=== PATIENT | female | born 1950 | race Caucasian/White ===

== ENCOUNTER 2022-06-17 14:10 | Inpatient (IN) | payer MEDICARE, SELFPAY ==
[2022-06-17 15:15] LABS: #Eosinphils 0.2 thou/uL (0.0-0.7); #Lymphocytes 0.9 thou/uL (1.20-3.40); %Basophils 0.2 % (0.0-1.0); %Eosinophils 1.8 % (0.0-10.0); %Lymphocytes 8.6 % (21.0-51.0); %Neutrophils 79.5 % (42.0-75.0); Hemoglobin 12.5 g/dL (12.0-16.0); Mean Corpuscular HGB CONC 30.9 g/dL (32.0-36.0); Mean Corpuscular Hemoglobin 30.2 pg (27.0-31.0); Mean Corpuscular Volume 97.7 fL (78.0-98.0); Mean Platelet Volume 10.4 fL (7.4-10.4); Platelet Count 163 thou/uL (130-400); RBC Distribution Width 14.1 % (11.5-14.5); Red Blood Cell (RBC) Count 4.15 mill/uL (4.20-5.40); White Blood Cell (WBC) Count 10.1 thou/uL (4.8-10.8)
[2022-06-17 15:42] LABS: ALT (SGPT) 31 U/L (8-55); AST (SGOT) 40 U/L (5-34); Albumin 3.6 g/dL (3.4-4.8); Alkaline Phosphatase 130 U/L (40-110); Anion Gap 14 mmol/L (10-20); BUN (Urea Nitrogen) 15 mg/dL (9.8-20.1); Bilirubin, Total 1.8 mg/dL (0.2-1.2); Calc. Creatinine Clearance 0 mL/min (70-130); Calcium 9.3 mg/dL (7.8-10.44); Carbon Dioxide 28 mmol/L (23-31); Chloride 103 mmol/L (98-107); Estimated GFR 73; Globulin 3.2 g/dL (2.4-3.5); Glucose 170 mg/dL (83-110); Potassium 3.6 mmol/L (3.5-5.1); Protein, Total 6.8 g/dL (5.8-8.1); Sodium 141 mmol/L (136-145)
[2022-06-17 17:57] LABS: Bacteria/HPF 4+ HPF (None Seen); Bilirubin Negative (Negative); Blood, Urine 3+ (Negative); Clarity Extra Turbid (Clear); Glucose, Urine (Dipstick) Normal (Negative); Ketone, Urine 40 mg/dL (Negative); Leukocyte 500 Leu/uL (Negative); Nitrite Negative (Negative); Protein, Urine (Dipstick) 50 mg/dL (Neg-Trace); Specific Gravity, Urine 1.018 (1.002-1.036); WBC/HPF Greater than 50 HPF (0-3); pH, Urine 5.5 (5.0-9.0)
[2022-06-17 17:59] LABS: RBC/HPF 21-50 HPF (0-3)
[2022-06-17 18:46] LABS: Lactic Acid 2.1 mmol/L (0.5-2.2)
[2022-06-17] MEDS ORDERED: Dextrose 50% Abboject 50 ML SYRINGE SLOW IVP PRN (20:04)
[2022-06-17] MEDS ORDERED: Dextrose 5% in Water 1,000 ML IV PRN (20:04)
[2022-06-17] MEDS ORDERED: HumaLOG 300 UNITS/3 ML VIAL SC PRN ×2 (20:04)
[2022-06-17] MEDS ORDERED: Acetaminophen 325 MG TAB PO PRN (20:04)
[2022-06-17] MEDS ORDERED: cefTRIAXone\\ROCEPHIN 1 GM VIAL ONE (21:08)
[2022-06-17 22:08] VITALS: BMI 62.3
[2022-06-17] MEDS: cefTRIAXone\\ROCEPHIN 2 GM in Sodium Chloride 0.9% 100 ML IVPB SCH (22:19)
[2022-06-17] MEDS: Apixaban 5 MG TAB PO SCH (22:25)
[2022-06-17] MEDS: Atorvastatin Calcium 20 MG TAB PO SCH (22:25)
[2022-06-17 22:59] LABS: Bilirubin Negative (Negative); Blood, Urine 3+ (Negative); Clarity Turbid (Clear); Glucose, Urine (Dipstick) Normal (Negative); Ketone, Urine 40 mg/dL (Negative); Leukocyte 500 Leu/uL (Negative); Nitrite Negative (Negative); Protein, Urine (Dipstick) 30 mg/dL (Neg-Trace); Specific Gravity, Urine 1.017 (1.002-1.036)
[2022-06-17 23:01] LABS: Bacteria/HPF 1+ HPF (None Seen); Squamous Epithelial 0-3 HPF (0-3)
[2022-06-17 23:02] LABS: Amphetamine Not Detected (NotDetected); Barbiturates Screen Not Detected (NotDetected); Benzodiazepine Screen Not Detected (NotDetected); Cocaine Metabolite Screen Not Detected (NotDetected); Methadone Not Detected (NotDetected); Methamphetamine Not Detected (NotDetected); Opiate Screen Detected (NotDetected); Oxycodone Screen Not Detected (NotDetected); Phencyclidine (PCP) Not Detected (NotDetected); THC/Cannabinoid Screen Not Detected (NotDetected); Tricyclic Screen Not Detected (NotDetected)
[2022-06-18 06:43] LABS: #Eosinphils 0.4 thou/uL (0.0-0.7); #Monocytes 0.8 thou/uL (0.11-0.59); #Neutrophils 4.5 thou/uL (1.40-6.50); %Basophils 0.5 % (0.0-1.0); %Eosinophils 5.5 % (0.0-10.0); %Lymphocytes 14.7 % (21.0-51.0); %Monocytes 12.1 % (0.0-10.0); %Neutrophils 67.1 % (42.0-75.0); Hemoglobin 11.6 g/dL (12.0-16.0); Mean Corpuscular HGB CONC 31.5 g/dL (32.0-36.0); Mean Corpuscular Hemoglobin 31.2 pg (27.0-31.0); Mean Platelet Volume 10.2 fL (7.4-10.4); Platelet Count 152 thou/uL (130-400); White Blood Cell (WBC) Count 6.7 thou/uL (4.8-10.8)
[2022-06-18 06:52] LABS: Anion Gap 9 mmol/L (10-20); BUN (Urea Nitrogen) 14 mg/dL (9.8-20.1); Calc. Creatinine Clearance 182 mL/min (70-130); Calcium 8.6 mg/dL (7.8-10.44); Carbon Dioxide 29 mmol/L (23-31); Chloride 105 mmol/L (98-107); Estimated GFR 83; Glucose 118 mg/dL (83-110); Sodium 140 mmol/L (136-145)
[2022-06-18] MEDS: Hydrochlorothiazide 25 MG TAB PO SCH (08:26)
[2022-06-18] MEDS: Apixaban 5 MG TAB PO SCH ×2 (08:26→20:55)
[2022-06-18] MEDS: Potassium Chloride 20 MEQ TAB PO SCH ×3 (08:32→20:55)
[2022-06-18] MEDS: Lisinopril 2.5 MG TAB PO SCH (08:36)
[2022-06-18] MEDS ORDERED: FLU VACC QS2022-23(65YR UP)/PF 240 MCG/0.7 ML SYRINGE IM ONE (09:00)
[2022-06-18] MEDS: Nystatin Powder 15 GM BOT TOP SCH ×2 (13:19→21:00)
[2022-06-18] MEDS: cefTRIAXone\\ROCEPHIN 2 GM in Sodium Chloride 0.9% 100 ML IVPB SCH (20:55)
[2022-06-18] MEDS: Atorvastatin Calcium 20 MG TAB PO SCH (20:55)
[2022-06-18] MEDS: Aquaphor 3.5 oz (99 G) JAR TOP SCH (21:00)
[2022-06-19 05:54] LABS: #Eosinphils 0.4 thou/uL (0.0-0.7); #Lymphocytes 0.9 thou/uL (1.20-3.40); #Monocytes 0.8 thou/uL (0.11-0.59); #Neutrophils 4.5 thou/uL (1.40-6.50); %Basophils 0.3 % (0.0-1.0); %Eosinophils 6.1 % (0.0-10.0); %Monocytes 12.6 % (0.0-10.0); Hemoglobin 10.8 g/dL (12.0-16.0); Mean Corpuscular HGB CONC 31.3 g/dL (32.0-36.0); Mean Corpuscular Hemoglobin 30.9 pg (27.0-31.0); Mean Corpuscular Volume 98.7 fL (78.0-98.0); Mean Platelet Volume 10.1 fL (7.4-10.4); Platelet Count 147 thou/uL (130-400); Platelet Morphology Comment Appears Adequate; RBC Distribution Width 14.2 % (11.5-14.5); Red Blood Cell (RBC) Count 3.51 mill/uL (4.20-5.40); White Blood Cell (WBC) Count 6.7 thou/uL (4.8-10.8)
[2022-06-19 05:59] LABS: Anion Gap 9 mmol/L (10-20); BUN (Urea Nitrogen) 14 mg/dL (9.8-20.1); Calc. Creatinine Clearance 182 mL/min (70-130); Calcium 8.4 mg/dL (7.8-10.44); Carbon Dioxide 28 mmol/L (23-31); Chloride 106 mmol/L (98-107); Estimated GFR 83; Glucose 106 mg/dL (83-110); Potassium 3.3 mmol/L (3.5-5.1); Sodium 140 mmol/L (136-145)
[2022-06-19] MEDS ORDERED: Fluconazole 100 MG TAB PO SCH (07:15)
[2022-06-19] MEDS: Lisinopril 2.5 MG TAB PO SCH (11:00)
[2022-06-19] MEDS: Apixaban 5 MG TAB PO SCH ×2 (11:02→20:34)
[2022-06-19] MEDS: Potassium Chloride 20 MEQ TAB PO SCH ×2 (11:03→15:08)
[2022-06-19] MEDS: Nystatin Powder 15 GM BOT TOP SCH ×3 (11:04→21:00)
[2022-06-19] MEDS: Hydrochlorothiazide 25 MG TAB PO SCH (11:04)
[2022-06-19] MEDS: Aquaphor 3.5 oz (99 G) JAR TOP SCH ×2 (11:10→20:34)
[2022-06-19] MEDS: Atorvastatin Calcium 20 MG TAB PO SCH (20:34)
[2022-06-19] MEDS: cefTRIAXone\\ROCEPHIN 2 GM in Sodium Chloride 0.9% 100 ML IVPB SCH (20:35)
[2022-06-20 07:12] LABS: #Eosinphils 0.4 thou/uL (0.0-0.7); #Monocytes 0.6 thou/uL (0.11-0.59); #Neutrophils 3.5 thou/uL (1.40-6.50); %Basophils 0.5 % (0.0-1.0); %Eosinophils 7.4 % (0.0-10.0); %Lymphocytes 18.3 % (21.0-51.0); %Monocytes 11.6 % (0.0-10.0); %Neutrophils 62.4 % (42.0-75.0); Hemoglobin 11.2 g/dL (12.0-16.0); Mean Corpuscular HGB CONC 30.9 g/dL (32.0-36.0); Mean Corpuscular Hemoglobin 30.6 pg (27.0-31.0); Mean Corpuscular Volume 99.1 fL (78.0-98.0); Mean Platelet Volume 10.6 fL (7.4-10.4); Platelet Count 155 thou/uL (130-400); RBC Distribution Width 14.3 % (11.5-14.5); Red Blood Cell (RBC) Count 3.66 mill/uL (4.20-5.40); White Blood Cell (WBC) Count 5.6 thou/uL (4.8-10.8)
[2022-06-20 07:33] LABS: Anion Gap 10 mmol/L (10-20); BUN (Urea Nitrogen) 15 mg/dL (9.8-20.1); Calc. Creatinine Clearance 173 mL/min (70-130); Calcium 8.9 mg/dL (7.8-10.44); Carbon Dioxide 26 mmol/L (23-31); Chloride 108 mmol/L (98-107); Estimated GFR 78; Glucose 117 mg/dL (83-110); Sodium 140 mmol/L (136-145)
[2022-06-20] MEDS: Aquaphor 3.5 oz (99 G) JAR TOP SCH ×2 (10:12→21:03)
[2022-06-20] MEDS: Nystatin Powder 15 GM BOT TOP SCH ×3 (10:12→21:04)
[2022-06-20] MEDS: Lisinopril 2.5 MG TAB PO SCH (10:14)
[2022-06-20] MEDS: Fluconazole 100 MG TAB PO SCH (10:15)
[2022-06-20] MEDS: Apixaban 5 MG TAB PO SCH ×2 (10:15→21:02)
[2022-06-20] MEDS: Hydrochlorothiazide 25 MG TAB PO SCH (10:15)
[2022-06-20] MEDS: Atorvastatin Calcium 20 MG TAB PO SCH (21:02)
[2022-06-20] MEDS: cefTRIAXone\\ROCEPHIN 2 GM in Sodium Chloride 0.9% 100 ML IVPB SCH (21:03)
[2022-06-20] MEDS ORDERED: Melatonin 3 MG TAB PO PRN (22:43)
[2022-06-20] MEDS: Lorazepam 0.5 MG TAB PO PRN (23:45)
[2022-06-21 08:56] LABS: #Eosinphils 0.4 thou/uL (0.0-0.7); #Lymphocytes 1.2 thou/uL (1.20-3.40); #Monocytes 0.6 thou/uL (0.11-0.59); #Neutrophils 3.1 thou/uL (1.40-6.50); %Basophils 0.5 % (0.0-1.0); %Lymphocytes 21.8 % (21.0-51.0); %Neutrophils 58.7 % (42.0-75.0); Mean Corpuscular HGB CONC 30.5 g/dL (32.0-36.0); Mean Corpuscular Hemoglobin 30.1 pg (27.0-31.0); Mean Corpuscular Volume 98.8 fL (78.0-98.0); Mean Platelet Volume 10.3 fL (7.4-10.4); Platelet Count 156 thou/uL (130-400); RBC Distribution Width 14.3 % (11.5-14.5); Red Blood Cell (RBC) Count 3.66 mill/uL (4.20-5.40); White Blood Cell (WBC) Count 5.3 thou/uL (4.8-10.8)
[2022-06-21] MEDS: Lisinopril 2.5 MG TAB PO SCH (08:58)
[2022-06-21] MEDS: Fluconazole 100 MG TAB PO SCH (08:59)
[2022-06-21] MEDS: Apixaban 5 MG TAB PO SCH ×2 (08:59→22:00)
[2022-06-21] MEDS: Hydrochlorothiazide 25 MG TAB PO SCH (08:59)
[2022-06-21] MEDS: Nystatin Powder 15 GM BOT TOP SCH ×3 (09:03→22:00)
[2022-06-21] MEDS: Aquaphor 3.5 oz (99 G) JAR TOP SCH ×2 (09:03→22:00)
[2022-06-21 09:08] LABS: Anion Gap 10 mmol/L (10-20); BUN (Urea Nitrogen) 15 mg/dL (9.8-20.1); Calc. Creatinine Clearance 168 mL/min (70-130); Calcium 8.8 mg/dL (7.8-10.44); Carbon Dioxide 28 mmol/L (23-31); Chloride 106 mmol/L (98-107); Estimated GFR 76; Glucose 77 mg/dL (83-110); Potassium 3.8 mmol/L (3.5-5.1); Sodium 140 mmol/L (136-145)
[2022-06-21] MEDS: cefTRIAXone\\ROCEPHIN 2 GM in Sodium Chloride 0.9% 100 ML IVPB SCH (22:00)
[2022-06-21] MEDS: Atorvastatin Calcium 20 MG TAB PO SCH (22:00)
[2022-06-22 06:19] LABS: #Eosinphils 0.4 thou/uL (0.0-0.7); #Lymphocytes 1.3 thou/uL (1.20-3.40); #Monocytes 0.7 thou/uL (0.11-0.59); #Neutrophils 2.6 thou/uL (1.40-6.50); %Basophils 0.4 % (0.0-1.0); %Eosinophils 8.3 % (0.0-10.0); %Lymphocytes 25.1 % (21.0-51.0); %Monocytes 14.6 % (0.0-10.0); %Neutrophils 51.6 % (42.0-75.0); Hemoglobin 11.3 g/dL (12.0-16.0); Mean Corpuscular HGB CONC 31.7 g/dL (32.0-36.0); Mean Corpuscular Hemoglobin 31.2 pg (27.0-31.0); Mean Corpuscular Volume 98.6 fL (78.0-98.0); Mean Platelet Volume 9.9 fL (7.4-10.4); Platelet Count 148 thou/uL (130-400); RBC Distribution Width 14.2 % (11.5-14.5)
[2022-06-22 06:49] LABS: Anion Gap 11 mmol/L (10-20); BUN (Urea Nitrogen) 13 mg/dL (9.8-20.1); Calc. Creatinine Clearance 173 mL/min (70-130); Calcium 8.7 mg/dL (7.8-10.44); Carbon Dioxide 27 mmol/L (23-31); Chloride 104 mmol/L (98-107); Estimated GFR 78; Glucose 67 mg/dL (83-110); Potassium 3.7 mmol/L (3.5-5.1); Sodium 138 mmol/L (136-145)
[2022-06-22] MEDS: Hydrochlorothiazide 25 MG TAB PO SCH (09:18)
[2022-06-22] MEDS: Fluconazole 100 MG TAB PO SCH (09:20)
[2022-06-22] MEDS: Aquaphor 3.5 oz (99 G) JAR TOP SCH ×2 (09:20→21:58)
[2022-06-22] MEDS: Apixaban 5 MG TAB PO SCH ×2 (09:20→21:58)
[2022-06-22] MEDS: Lisinopril 2.5 MG TAB PO SCH (09:20)
[2022-06-22] MEDS: Nystatin Powder 15 GM BOT TOP SCH ×3 (09:21→21:58)
[2022-06-22] MEDS: Atorvastatin Calcium 20 MG TAB PO SCH (21:58)
[2022-06-22] MEDS: Cefdinir 300 MG CAP PO SCH (21:58)
[2022-06-23] MEDS: Lorazepam 0.5 MG TAB PO PRN (00:41)
[2022-06-23] MEDS: Cefdinir 300 MG CAP PO SCH ×2 (08:51→20:35)
[2022-06-23] MEDS: Hydrochlorothiazide 25 MG TAB PO SCH (08:52)
[2022-06-23] MEDS: Lisinopril 2.5 MG TAB PO SCH (08:52)
[2022-06-23] MEDS: Aquaphor 3.5 oz (99 G) JAR TOP SCH ×2 (08:53→20:39)
[2022-06-23] MEDS: Nystatin Powder 15 GM BOT TOP SCH ×3 (08:53→20:40)
[2022-06-23] MEDS: Apixaban 5 MG TAB PO SCH ×2 (08:53→20:35)
[2022-06-23] MEDS: Atorvastatin Calcium 20 MG TAB PO SCH (20:35)
[2022-06-24] MEDS: Lisinopril 2.5 MG TAB PO SCH (08:50)
[2022-06-24] MEDS: Apixaban 5 MG TAB PO SCH (08:50)
[2022-06-24] MEDS: Cefdinir 300 MG CAP PO SCH (08:50)
[2022-06-24] MEDS: Hydrochlorothiazide 25 MG TAB PO SCH (08:51)
[2022-06-24] MEDS: Nystatin Powder 15 GM BOT TOP SCH (08:51)
[2022-06-24] MEDS: Aquaphor 3.5 oz (99 G) JAR TOP SCH (08:51)
[2022-06-24 12:15] VITALS: BP 142/55; TEMP 97.4
== END 2022-06-24 12:37 | DRG 690 ==
LOC: SUATTDRO 14:10 → ERS 14:10 → T4-B 19:30 → OBSVTOIN 06-19 14:41
PROVIDERS: ADMIT Internal Medicine; ATTEND Internal Medicine
DX: N30.00 Acute cystitis without hematuria (principal); Z68.44 Body mass index [BMI] 60.0-69.9, adult; Z20.822 Contact with and (suspected) exposure to COVID-19; Z23 Encounter for immunization; I10 Essential (primary) hypertension; I48.91 Unspecified atrial fibrillation; E11.9 Type 2 diabetes mellitus without complications; E78.5 Hyperlipidemia, unspecified; E66.01 Morbid (severe) obesity due to excess calories; I48.0 Paroxysmal atrial fibrillation; H40.9 Unspecified glaucoma; Z88.2 Allergy status to sulfonamides; Z98.51 Tubal ligation status; Z90.710 Acquired absence of both cervix and uterus; Z90.722 Acquired absence of ovaries, bilateral
CPT/HCPCS: 36415; 36416; 71045; 80048; 80053; 80306; 81003; 81015; 83605; 84484; 85025; 87040; 87086; 90471; 90662; 93005; 96374; 96376; 97139; G0008; G0378; J0696; J3490; U0003; U0005

== ENCOUNTER 2022-07-18 13:43 | Inpatient (IN) | payer MEDICARE, OTHER ==
[2022-07-18] MEDS ORDERED: Piperacillin/Tazobactam 3.375 GM VIAL ONE (14:45)
[2022-07-18 14:52] LABS: #Eosinphils 0.2 thou/uL (0.0-0.7); #Lymphocytes 1.1 thou/uL (1.20-3.40); #Monocytes 0.7 thou/uL (0.11-0.59); #Neutrophils 5.9 thou/uL (1.40-6.50); %Basophils 0.4 % (0.0-1.0); %Eosinophils 2.1 % (0.0-10.0); %Lymphocytes 14.1 % (21.0-51.0); %Monocytes 9.3 % (0.0-10.0); %Neutrophils 74.2 % (42.0-75.0); Hemoglobin 12.8 g/dL (12.0-16.0); Mean Corpuscular HGB CONC 32.7 g/dL (32.0-36.0); Mean Corpuscular Hemoglobin 30.9 pg (27.0-31.0); Mean Corpuscular Volume 94.4 fl (78.0-98.0); Mean Platelet Volume 9.6 fL (7.4-10.4); Platelet Count 183 thou/uL (130-400); RBC Distribution Width 14.5 % (11.5-14.5); Red Blood Cell (RBC) Count 4.13 mill/uL (4.20-5.40)
[2022-07-18 15:12] LABS: Bacteria/HPF 1+ HPF (None Seen); Bilirubin Negative (Negative); Blood, Urine 3+ (Negative); Glucose, Urine (Dipstick) Normal (Negative); Ketone, Urine Negative (Negative); Leukocyte 250 Leu/uL (Negative); Nitrite Negative (Negative); Protein, Urine (Dipstick) 10 mg/dL (Neg-Trace); RBC/HPF Greater than 50 HPF (0-3); Specific Gravity, Urine 1.018 (1.002-1.036); Squamous Epithelial 0-3 HPF (0-3); Urobilinogen Normal mg/dL (Less than 2); WBC/HPF 21-50 HPF (0-3); pH, Urine 5.5 (5.0-9.0)
[2022-07-18 15:13] LABS: Clarity Cloudy (Clear)
[2022-07-18 15:15] LABS: ALT (SGPT) 26 U/L (8-55); AST (SGOT) 24 U/L (5-34); Albumin 3.5 g/dL (3.4-4.8); Alkaline Phosphatase 197 U/L (40-110); Anion Gap 14 mmol/L (10-20); BUN (Urea Nitrogen) 24 mg/dL (9.8-20.1); CK (CPK) 303 U/L (29-168); Calc. Creatinine Clearance 0 mL/min (70-130); Calcium 9.5 mg/dL (7.8-10.44); Carbon Dioxide 26 mmol/L (23-31); Chloride 103 mmol/L (98-107); Estimated GFR 65; Globulin 3.3 g/dL (2.4-3.5); Glucose 153 mg/dL (83-110); Potassium 3.8 mmol/L (3.5-5.1); Protein, Total 6.8 g/dL (5.8-8.1); Sodium 139 mmol/L (136-145)
[2022-07-18 15:36] LABS: SARS-CoV-2 NAA Rapid Test Not Detected (NotDetected)
[2022-07-18] MEDS ORDERED: Vancomycin 1 GM/200 ML (PREMIX) BAG ONE (16:12)
[2022-07-18] MEDS ORDERED: Boostrix 0.5 ML (Tdap) VIAL (>/=7 yrs of age) ONE (16:13)
[2022-07-18] MEDS ORDERED: Dextrose 5% in Water 1,000 ML IV PRN (16:37)
[2022-07-18] MEDS ORDERED: HumaLOG 300 UNITS/3 ML VIAL SC PRN (16:37)
[2022-07-18] MEDS ORDERED: Dextrose 50% Abboject 50 ML SYRINGE SLOW IVP PRN (16:37)
[2022-07-18] MEDS ORDERED: Acetaminophen 325 MG TAB PO PRN (16:38)
[2022-07-18 16:50] LABS: Hemoglobin A1c 6.8 % (4.0-6.0)
[2022-07-18] MEDS: Apixaban 5 MG TAB PO SCH (21:54)
[2022-07-18] MEDS: cefTRIAXone\\ROCEPHIN 1 GM in Sodium Chloride 0.9% 100 ML IVPB SCH (21:55)
[2022-07-18 22:28] VITALS: BMI 56.9
[2022-07-18] MEDS ORDERED: Vancomycin 1.5 GRAM/300 ML BAG 1.5 GM in Premix Bag 1 BAG IVPB SCH (23:00)
[2022-07-19 07:23] LABS: #Basophils 0.1 thou/uL (0.0-0.2); #Eosinphils 0.4 thou/uL (0.0-0.7); #Monocytes 0.6 thou/uL (0.11-0.59); %Basophils 0.9 % (0.0-1.0); %Eosinophils 6.2 % (0.0-10.0); %Lymphocytes 16.6 % (21.0-51.0); %Monocytes 9.7 % (0.0-10.0); %Neutrophils 66.6 % (42.0-75.0); Hemoglobin 11.9 g/dL (12.0-16.0); Mean Corpuscular Hemoglobin 29.8 pg (27.0-31.0); Mean Corpuscular Volume 96.3 fl (78.0-98.0); Mean Platelet Volume 9.9 fL (7.4-10.4); Platelet Count 174 thou/uL (130-400); RBC Distribution Width 14.7 % (11.5-14.5); Red Blood Cell (RBC) Count 3.97 mill/uL (4.20-5.40)
[2022-07-19 07:42] LABS: Anion Gap 12 mmol/L (10-20); BUN (Urea Nitrogen) 19 mg/dL (9.8-20.1); Calc. Creatinine Clearance 137 mL/min (70-130); Calcium 8.8 mg/dL (7.8-10.44); Carbon Dioxide 23 mmol/L (23-31); Chloride 107 mmol/L (98-107); Estimated GFR 66; Glucose 129 mg/dL (83-110); Sodium 138 mmol/L (136-145)
[2022-07-19] MEDS ORDERED: Hydrochlorothiazide 25 MG TAB PO SCH (09:00)
[2022-07-19] MEDS ORDERED: Lisinopril 2.5 MG TAB PO SCH (09:00)
[2022-07-19] MEDS: Apixaban 5 MG TAB PO SCH ×2 (09:19→21:10)
[2022-07-19] MEDS: Potassium Chloride 20 MEQ TAB PO SCH (09:19)
[2022-07-19] MEDS: Vancomycin 1 GM in Premix Bag 1 BAG IVPB SCH ×2 (13:53→23:42)
[2022-07-19] MEDS: Senokot S 8.6-50 MG TAB PO PRN ×2 (13:53→21:10)
[2022-07-19] MEDS: Furosemide 20 MG/2 ML VIAL SLOW IVP SCH (13:53)
[2022-07-19] MEDS: Carvedilol 3.125 MG TAB PO SCH (18:15)
[2022-07-19] MEDS: Atorvastatin Calcium 20 MG TAB PO SCH (21:10)
[2022-07-19] MEDS: Nystatin Powder 15 GM BOT TOP PRN (21:11)
[2022-07-19] MEDS: cefTRIAXone\\ROCEPHIN 1 GM in Sodium Chloride 0.9% 100 ML IVPB SCH (21:11)
[2022-07-20 05:42] LABS: Anion Gap 14 mmol/L (10-20); BUN (Urea Nitrogen) 16 mg/dL (9.8-20.1); Calc. Creatinine Clearance 150 mL/min (70-130); Calcium 8.7 mg/dL (7.8-10.44); Carbon Dioxide 20 mmol/L (23-31); Chloride 106 mmol/L (98-107); Estimated GFR 74; Glucose 172 mg/dL (83-110); Sodium 136 mmol/L (136-145)
[2022-07-20] MEDS: Furosemide 20 MG/2 ML VIAL SLOW IVP SCH ×2 (06:17→14:23)
[2022-07-20] MEDS: HumaLOG 300 UNITS/3 ML VIAL SC PRN (06:24)
[2022-07-20] MEDS: Apixaban 5 MG TAB PO SCH ×2 (08:48→20:33)
[2022-07-20] MEDS: Carvedilol 3.125 MG TAB PO SCH ×2 (08:48→17:30)
[2022-07-20] MEDS: Potassium Chloride 20 MEQ TAB PO SCH (08:48)
[2022-07-20 11:08] LABS: #Basophils 0.1 thou/uL (0.0-0.2); #Eosinphils 0.2 thou/uL (0.0-0.7); #Monocytes 0.7 thou/uL (0.11-0.59); #Neutrophils 6.9 thou/uL (1.40-6.50); %Basophils 0.6 % (0.0-1.0); %Eosinophils 1.7 % (0.0-10.0); %Lymphocytes 11.1 % (21.0-51.0); %Monocytes 7.8 % (0.0-10.0); %Neutrophils 78.7 % (42.0-75.0); Mean Corpuscular HGB CONC 31.1 g/dL (32.0-36.0); Mean Corpuscular Hemoglobin 30.3 pg (27.0-31.0); Mean Corpuscular Volume 97.3 fl (78.0-98.0); Mean Platelet Volume 9.9 fL (7.4-10.4); Platelet Count 168 thou/uL (130-400); RBC Distribution Width 14.9 % (11.5-14.5); Red Blood Cell (RBC) Count 4.28 mill/uL (4.20-5.40); White Blood Cell (WBC) Count 8.8 thou/uL (4.8-10.8)
[2022-07-20 11:25] LABS: Vancomycin, Trough 16.8 ug/mL
[2022-07-20] MEDS: Vancomycin 1 GM in Premix Bag 1 BAG IVPB SCH (13:11)
[2022-07-20] MEDS: Atorvastatin Calcium 20 MG TAB PO SCH (20:33)
[2022-07-20] MEDS: Nystatin Powder 15 GM BOT TOP PRN (20:33)
[2022-07-20] MEDS: Latanoprost 0.005% Ophth Soln 2.5 ml Bottle EA EYE SCH (21:24)
[2022-07-21] MEDS: Vancomycin 1 GM in Premix Bag 1 BAG IVPB SCH ×3 (00:49→23:32)
[2022-07-21 04:54] LABS: #Eosinphils 0.3 thou/uL (0.0-0.7); #Lymphocytes 1.2 thou/uL (1.20-3.40); #Monocytes 0.7 thou/uL (0.11-0.59); #Neutrophils 4.2 thou/uL (1.40-6.50); %Basophils 0.3 % (0.0-1.0); %Eosinophils 4.1 % (0.0-10.0); %Lymphocytes 19.2 % (21.0-51.0); %Monocytes 10.4 % (0.0-10.0); Hemoglobin 11.1 g/dL (12.0-16.0); Mean Corpuscular Hemoglobin 30.5 pg (27.0-31.0); Mean Corpuscular Volume 95.2 fl (78.0-98.0); Mean Platelet Volume 10.1 fL (7.4-10.4); Platelet Count 155 thou/uL (130-400); RBC Distribution Width 14.8 % (11.5-14.5); Red Blood Cell (RBC) Count 3.63 mill/uL (4.20-5.40); White Blood Cell (WBC) Count 6.3 thou/uL (4.8-10.8)
[2022-07-21] MEDS: Furosemide 20 MG/2 ML VIAL SLOW IVP SCH ×2 (05:29→13:09)
[2022-07-21 05:53] LABS: Anion Gap 9 mmol/L (10-20); BUN (Urea Nitrogen) 13 mg/dL (9.8-20.1); Calc. Creatinine Clearance 150 mL/min (70-130); Calcium 8.5 mg/dL (7.8-10.44); Carbon Dioxide 27 mmol/L (23-31); Chloride 103 mmol/L (98-107); Estimated GFR 75; Glucose 177 mg/dL (83-110); Potassium 3.2 mmol/L (3.5-5.1); Sodium 136 mmol/L (136-145)
[2022-07-21] MEDS: HumaLOG 300 UNITS/3 ML VIAL SC PRN ×3 (06:07→17:51)
[2022-07-21] MEDS: Apixaban 5 MG TAB PO SCH ×2 (08:53→20:58)
[2022-07-21] MEDS: Carvedilol 3.125 MG TAB PO SCH ×2 (08:53→17:51)
[2022-07-21] MEDS: Potassium Chloride 20 MEQ TAB PO SCH (08:53)
[2022-07-21] MEDS ORDERED: Potassium Chloride 20 MEQ TAB PO SCH (09:00)
[2022-07-21] MEDS: Senokot S 8.6-50 MG TAB PO PRN (17:56)
[2022-07-21] MEDS: Atorvastatin Calcium 20 MG TAB PO SCH (20:58)
[2022-07-21] MEDS: Latanoprost 0.005% Ophth Soln 2.5 ml Bottle EA EYE SCH (20:59)
[2022-07-21 23:12] LABS: Vancomycin, Trough 19.1 ug/mL
[2022-07-22] MEDS: Furosemide 20 MG/2 ML VIAL SLOW IVP SCH (06:08)
[2022-07-22 06:09] LABS: #Basophils 0.1 thou/uL (0.0-0.2); #Eosinphils 0.2 thou/uL (0.0-0.7); #Monocytes 0.8 thou/uL (0.11-0.59); #Neutrophils 5.9 thou/uL (1.40-6.50); %Basophils 0.6 % (0.0-1.0); %Eosinophils 2.2 % (0.0-10.0); %Lymphocytes 12.8 % (21.0-51.0); %Monocytes 10.5 % (0.0-10.0); %Neutrophils 73.8 % (42.0-75.0); Hemoglobin 11.6 g/dL (12.0-16.0); Mean Corpuscular HGB CONC 31.7 g/dL (32.0-36.0); Mean Corpuscular Hemoglobin 30.3 pg (27.0-31.0); Mean Corpuscular Volume 95.5 fl (78.0-98.0); Mean Platelet Volume 10.8 fL (7.4-10.4); Platelet Count 157 10x3/uL (130-400); RBC Distribution Width 14.8 % (11.5-14.5); Red Blood Cell (RBC) Count 3.82 mill/uL (4.20-5.40)
[2022-07-22 06:10] LABS: Anion Gap 16 mmol/L (10-20); BUN (Urea Nitrogen) 15 mg/dL (9.8-20.1); Calc. Creatinine Clearance 140 mL/min (70-130); Calcium 8.4 mg/dL (7.8-10.44); Carbon Dioxide 23 mmol/L (23-31); Chloride 101 mmol/L (98-107); Estimated GFR 69; Glucose 199 mg/dL (83-110); Potassium 3.5 mmol/L (3.5-5.1); Sodium 136 mmol/L (136-145)
[2022-07-22] MEDS: Carvedilol 3.125 MG TAB PO SCH ×2 (08:44→16:20)
[2022-07-22] MEDS: Apixaban 5 MG TAB PO SCH ×2 (08:45→20:25)
[2022-07-22] MEDS: Potassium Chloride 20 MEQ TAB PO SCH (08:45)
[2022-07-22] MEDS: Vancomycin 1 GM in Premix Bag 1 BAG IVPB SCH ×2 (12:00→23:10)
[2022-07-22] MEDS: HumaLOG 300 UNITS/3 ML VIAL SC PRN ×2 (12:01→18:37)
[2022-07-22] MEDS: Furosemide 100 MG/10 ML VIAL SLOW IVP SCH (14:39)
[2022-07-22] MEDS: Atorvastatin Calcium 20 MG TAB PO SCH (20:25)
[2022-07-22] MEDS: Latanoprost 0.005% Ophth Soln 2.5 ml Bottle EA EYE SCH (20:25)
[2022-07-23 04:51] LABS: #Eosinphils 0.2 thou/uL (0.0-0.7); #Lymphocytes 1.3 thou/uL (1.20-3.40); %Basophils 0.3 % (0.0-1.0); %Eosinophils 2.4 % (0.0-10.0); %Lymphocytes 17.3 % (21.0-51.0); %Monocytes 12.9 % (0.0-10.0); %Neutrophils 67.1 % (42.0-75.0); Hemoglobin 11.4 g/dL (12.0-16.0); Mean Corpuscular Hemoglobin 30.2 pg (27.0-31.0); Mean Corpuscular Volume 94.3 fl (78.0-98.0); Mean Platelet Volume 9.9 fL (7.4-10.4); Platelet Count 156 10x3/uL (130-400); RBC Distribution Width 14.6 % (11.5-14.5); Red Blood Cell (RBC) Count 3.77 mill/uL (4.20-5.40); White Blood Cell (WBC) Count 7.4 10x3/uL (4.8-10.8)
[2022-07-23 05:06] LABS: Anion Gap 15 mmol/L (10-20); BUN (Urea Nitrogen) 16 mg/dL (9.8-20.1); Calc. Creatinine Clearance 132 mL/min (70-130); Calcium 8.5 mg/dL (7.8-10.44); Carbon Dioxide 27 mmol/L (23-31); Chloride 97 mmol/L (98-107); Estimated GFR 66; Glucose 156 mg/dL (83-110); Potassium 3.1 mmol/L (3.5-5.1); Sodium 136 mmol/L (136-145)
[2022-07-23] MEDS: Furosemide 100 MG/10 ML VIAL SLOW IVP SCH ×2 (05:35→13:39)
[2022-07-23] MEDS: HumaLOG 300 UNITS/3 ML VIAL SC PRN ×3 (05:36→16:59)
[2022-07-23] MEDS ORDERED: Metolazone 5 MG TAB PO SCH (07:00)
[2022-07-23] MEDS ORDERED: Spironolactone 25 MG TAB PO SCH ×2 (08:00)
[2022-07-23] MEDS ORDERED: Potassium Chloride 20 MEQ TAB PO SCH (08:45)
[2022-07-23] MEDS: Potassium Chloride 20 MEQ TAB PO SCH (09:26)
[2022-07-23] MEDS: Apixaban 5 MG TAB PO SCH (09:27)
[2022-07-23] MEDS: Carvedilol 3.125 MG TAB PO SCH ×2 (09:27→16:57)
[2022-07-23] MEDS: Vancomycin 1 GM in Premix Bag 1 BAG IVPB SCH (11:36)
[2022-07-23 16:21] VITALS: BP 130/62; TEMP 98.2
== END 2022-07-23 19:34 | DRG 602 ==
LOC: ERS 13:43 → T4-B 16:23 → 2SW 07-19 11:26 → 2NO 07-20 19:37
PROVIDERS: ADMIT Internal Medicine; ATTEND Internal Medicine
DX: L03.115 Cellulitis of right lower limb (principal); Z20.822 Contact with and (suspected) exposure to COVID-19; Z23 Encounter for immunization; I50.33 Acute on chronic diastolic (congestive) heart failure; I48.21 Permanent atrial fibrillation; M62.82 Rhabdomyolysis; N30.00 Acute cystitis without hematuria; Z68.43 Body mass index [BMI] 50.0-59.9, adult; E87.6 Hypokalemia; E11.51 Type 2 diabetes mellitus with diabetic peripheral angiopathy without gangrene; I11.0 Hypertensive heart disease with heart failure; I87.2 Venous insufficiency (chronic) (peripheral); L03.116 Cellulitis of left lower limb; H40.9 Unspecified glaucoma; R29.6 Repeated falls; E66.01 Morbid (severe) obesity due to excess calories; E78.5 Hyperlipidemia, unspecified; Z88.2 Allergy status to sulfonamides; Z79.01 Long term (current) use of anticoagulants; Z79.84 Long term (current) use of oral hypoglycemic drugs; Z90.710 Acquired absence of both cervix and uterus; Z98.51 Tubal ligation status; Z91.81 History of falling
CPT/HCPCS: 36415; 36416; 71045; 80048; 80053; 80202; 81003; 81015; 82550; 83036; 83605; 83880; 85025; 87040; 87086; 90471; 90715; 93005; 93306; 93970; 96365; 96375; 97139; J0696; J1815; J1940; J2543; J3370; J3490; U0002

== ENCOUNTER 2023-07-11 13:14 | Inpatient (IN) | payer MEDICARE ==
[2023-07-11 14:06] LABS: Delete Auto Diff?? YES; Hematocrit 32.2 % (36.0-47.0); Hemoglobin 10.2 g/dL (12.0-16.0); Manual Diff?? YES; Mean Corpuscular HGB CONC 31.7 g/dL (32.0-36.0); Mean Corpuscular Hemoglobin 30.5 pg (27.0-31.0); Mean Corpuscular Volume 96.4 fl (78.0-98.0); Mean Platelet Volume 11.9 fL (7.4-10.4); Platelet Count 150 10x3/uL (130-400); Red Blood Cell (RBC) Count 3.34 mill/uL (4.20-5.40)
[2023-07-11 14:29] LABS: Anisocytosis SLIGHT = 6-15 cells HPF (0-5); Band 2 % (5-11); CellaVision Operator ID LAB.MJL; Eosinophils 1 % (0-10); Large Platelets 8.1 % (0-5); Lymphocytes 14 % (21-51); Monocytes 4 % (0-10); Neutrophil 79 % (42-75); Ovalocytes SLIGHT = 2-5 cells HPF (0-1); Platelet Adequacy Comment Platelets Normal; Polychromasia SLIGHT = 2-3 cells HPF (0-2); Total Cell Count 99
[2023-07-11 14:31] LABS: ALT (SGPT) 9 U/L (8-55); AST (SGOT) 12 U/L (5-34); Albumin 4.1 g/dL (3.4-4.8); Alkaline Phosphatase 134 U/L (40-110); Anion Gap 14 mmol/L (10-20); BUN (Urea Nitrogen) 15 mg/dL (9.8-20.1); Bilirubin, Total 1.2 mg/dL (0.2-1.2); Calc. Creatinine Clearance 0 mL/min (70-130); Calcium 9.5 mg/dL (7.8-10.44); Carbon Dioxide 22 mmol/L (23-31); Chloride 107 mmol/L (98-107); Estimated GFR 59; Globulin 2.6 g/dL (2.4-3.5); Glucose 147 mg/dL (83-110); Protein, Total 6.7 g/dL (5.8-8.1); Sodium 139 mmol/L (136-145)
[2023-07-11 14:33] LABS: Troponin I Less than 0.010 ng/mL (< 0.028)
[2023-07-11] MEDS ORDERED: Furosemide 40 MG/4 ML VIAL ONE (15:23)
[2023-07-11 15:28] LABS: Bilirubin Negative (Negative); Blood, Urine 3+ (Negative); CAUTI Indications for Culture Dysuria,urgency,freq; Calcium Oxalate Crystals Rare HPF (None Seen); Clarity Turbid (Clear); Glucose, Urine (Dipstick) Normal (Negative); Ketone, Urine Negative (Negative); Leukocyte 25 Leu/uL (Negative); Nitrite Negative (Negative); Protein, Urine (Dipstick) 30 mg/dL (Neg-Trace); RBC/HPF Greater than 50 HPF (0-3); Specific Gravity, Urine 1.018 (1.002-1.036); Squamous Epithelial 0-3 HPF (0-3); WBC/HPF 0-3 HPF (0-3); pH, Urine 5.5 (5.0-9.0)
[2023-07-11 15:33] LABS: Bacteria/HPF 1+ HPF (None Seen)
[2023-07-11 15:35] LABS: Urine Culture Reflex No No
[2023-07-11] MEDS ORDERED: Ondansetron PF 4 MG/2 ML Vial IVP PRN (19:43)
[2023-07-11] MEDS ORDERED: Acetaminophen 650 MG Suppository PR PRN (19:43)
[2023-07-11] MEDS ORDERED: Ondansetron ODT 4 MG TAB PO PRN (19:43)
[2023-07-11] MEDS ORDERED: Acetaminophen 325 MG TAB PO PRN (19:43)
[2023-07-11] MEDS ORDERED: HumaLOG 300 UNITS/3 ML VIAL SC PRN (19:47)
[2023-07-11] MEDS ORDERED: Dextrose 5% in Water 1,000 ML IV PRN (19:47)
[2023-07-11] MEDS ORDERED: Dextrose 50% Abboject 50 ML SYRINGE SLOW IVP PRN (19:47)
[2023-07-11] MEDS ORDERED: Glucagon 1 MG/ML KIT IM PRN (19:47)
[2023-07-11 20:08] LABS: Troponin I Less than 0.010 ng/mL (< 0.028)
[2023-07-11 21:28] VITALS: BMI 52.0
[2023-07-11 23:04] LABS: Troponin I Less than 0.010 ng/mL (< 0.028)
[2023-07-12 06:01] LABS: #Eosinphils 0.2 thou/uL (0.0-0.7); #Monocytes 0.8 thou/uL (0.11-0.59); #Neutrophils 3.1 thou/uL (1.40-6.50); %Basophils 0.2 % (0.0-1.0); %Eosinophils 3.6 % (0.0-10.0); %Lymphocytes 19.6 % (21.0-51.0); %Neutrophils 61.4 % (42.0-75.0); Hematocrit 26.7 % (36.0-47.0); Hemoglobin 8.6 g/dL (12.0-16.0); Mean Corpuscular HGB CONC 32.2 g/dL (32.0-36.0); Mean Corpuscular Volume 96.4 fl (78.0-98.0); Platelet Count 136 10x3/uL (130-400); Red Blood Cell (RBC) Count 2.77 mill/uL (4.20-5.40)
[2023-07-12] MEDS: Furosemide 40 MG/4 ML VIAL SLOW IVP SCH ×2 (06:01→13:28)
[2023-07-12 06:27] LABS: Anion Gap 8 mmol/L (10-20); BUN (Urea Nitrogen) 14 mg/dL (9.8-20.1); Calc. Creatinine Clearance 125 mL/min (70-130); Calcium 8.8 mg/dL (7.8-10.44); Carbon Dioxide 27 mmol/L (23-31); Chloride 108 mmol/L (98-107); Estimated GFR 68; Glucose 92 mg/dL (83-110); Magnesium 1.9 mg/dL (1.6-2.6); Potassium 3.4 mmol/L (3.5-5.1); Sodium 140 mmol/L (136-145)
[2023-07-12] MEDS ORDERED: Spironolactone 25 MG TAB PO SCH (08:45)
[2023-07-12] MEDS: Empagliflozin 10 MG TAB PO SCH (10:30)
[2023-07-12] MEDS: Carvedilol 3.125 MG TAB PO SCH (16:42)
[2023-07-12] MEDS: Apixaban 5 MG TAB PO SCH (20:33)
[2023-07-12] MEDS: Latanoprost 0.005% Ophth Soln 2.5 ml Bottle EA EYE SCH (20:34)
[2023-07-12] MEDS ORDERED: Atorvastatin Calcium 20 MG TAB PO SCH (21:00)
[2023-07-13 04:20] LABS: #Eosinphils 0.2 thou/uL (0.0-0.7); #Monocytes 0.7 thou/uL (0.11-0.59); #Neutrophils 2.4 thou/uL (1.40-6.50); %Basophils 0.5 % (0.0-1.0); %Eosinophils 3.8 % (0.0-10.0); %Lymphocytes 24.9 % (21.0-51.0); %Monocytes 16.3 % (0.0-10.0); %Neutrophils 54.3 % (42.0-75.0); Hematocrit 26.3 % (36.0-47.0); Hemoglobin 8.3 g/dL (12.0-16.0); Mean Corpuscular HGB CONC 31.6 g/dL (32.0-36.0); Mean Corpuscular Hemoglobin 30.1 pg (27.0-31.0); Mean Corpuscular Volume 95.3 fl (78.0-98.0); Mean Platelet Volume 12.1 fL (7.4-10.4); Platelet Count 128 10x3/uL (130-400); RBC Distribution Width 15.1 % (11.5-14.5); Red Blood Cell (RBC) Count 2.76 mill/uL (4.20-5.40); White Blood Cell (WBC) Count 4.4 10x3/uL (4.8-10.8)
[2023-07-13 04:48] LABS: Anion Gap 11 mmol/L (10-20); BUN (Urea Nitrogen) 15 mg/dL (9.8-20.1); Calc. Creatinine Clearance 100 mL/min (70-130); Calcium 8.7 mg/dL (7.8-10.44); Carbon Dioxide 26 mmol/L (23-31); Chloride 107 mmol/L (98-107); Estimated GFR 52; Glucose 109 mg/dL (83-110); Iron 20 ug/dL (50-170); Iron Binding Capacity, Total 348 mcg/dL (265-497); Potassium 3.4 mmol/L (3.5-5.1); Sodium 141 mmol/L (136-145)
[2023-07-13] MEDS: Furosemide 40 MG/4 ML VIAL SLOW IVP SCH ×2 (05:36→13:52)
[2023-07-13] MEDS ORDERED: Spironolactone 25 MG TAB PO SCH ×2 (08:00)
[2023-07-13] MEDS: Potassium Chloride 20 MEQ TAB PO SCH (08:15)
[2023-07-13] MEDS: Metamucil PACK PO SCH (08:15)
[2023-07-13] MEDS: Empagliflozin 10 MG TAB PO SCH (08:16)
[2023-07-13] MEDS: Carvedilol 3.125 MG TAB PO SCH ×2 (08:16→16:54)
[2023-07-13] MEDS: Spironolactone 25 MG TAB PO SCH (08:16)
[2023-07-13] MEDS: Apixaban 5 MG TAB PO SCH (08:16)
[2023-07-13] MEDS ORDERED: Metamucil PACK PO SCH (09:00)
[2023-07-13] MEDS ORDERED: Atorvastatin Calcium 20 MG TAB PO SCH (09:00)
[2023-07-13] MEDS ORDERED: Non-Formulary Item 1 EACH (Potassium Chloride [Potassium Chloride] 20 MEQ Tablet.Er) PO SCH (09:00)
[2023-07-13] MEDS: HumaLOG 300 UNITS/3 ML VIAL SC PRN ×2 (12:49→16:54)
[2023-07-13] MEDS: Latanoprost 0.005% Ophth Soln 2.5 ml Bottle EA EYE SCH (21:03)
[2023-07-13] MEDS: Pantoprazole 40 MG VIAL IVP SCH (21:04)
[2023-07-14 04:31] LABS: #Eosinphils 0.2 thou/uL (0.0-0.7); #Monocytes 0.7 thou/uL (0.11-0.59); #Neutrophils 2.6 thou/uL (1.40-6.50); %Basophils 0.6 % (0.0-1.0); %Eosinophils 3.9 % (0.0-10.0); %Lymphocytes 27.3 % (21.0-51.0); %Monocytes 14.5 % (0.0-10.0); %Neutrophils 53.5 % (42.0-75.0); Hematocrit 27.6 % (36.0-47.0); Hemoglobin 8.8 g/dL (12.0-16.0); Mean Corpuscular HGB CONC 31.9 g/dL (32.0-36.0); Mean Corpuscular Hemoglobin 30.7 pg (27.0-31.0); Mean Corpuscular Volume 96.2 fl (78.0-98.0); Platelet Count 129 10x3/uL (130-400); RBC Distribution Width 14.9 % (11.5-14.5); Red Blood Cell (RBC) Count 2.87 mill/uL (4.20-5.40); White Blood Cell (WBC) Count 4.9 10x3/uL (4.8-10.8)
[2023-07-14 04:53] LABS: Anion Gap 12 mmol/L (10-20); BUN (Urea Nitrogen) 14 mg/dL (9.8-20.1); Calc. Creatinine Clearance 109 mL/min (70-130); Calcium 8.7 mg/dL (7.8-10.44); Carbon Dioxide 28 mmol/L (23-31); Chloride 105 mmol/L (98-107); Estimated GFR 58; Glucose 99 mg/dL (83-110); Potassium 3.3 mmol/L (3.5-5.1); Sodium 142 mmol/L (136-145)
[2023-07-14] MEDS: Furosemide 40 MG/4 ML VIAL SLOW IVP SCH ×2 (05:59→14:29)
[2023-07-14] MEDS: Spironolactone 25 MG TAB PO SCH (08:23)
[2023-07-14] MEDS: Metamucil PACK PO SCH (08:24)
[2023-07-14] MEDS: Carvedilol 3.125 MG TAB PO SCH ×2 (08:24→18:02)
[2023-07-14] MEDS: Empagliflozin 10 MG TAB PO SCH (08:24)
[2023-07-14] MEDS: Pantoprazole 40 MG VIAL IVP SCH ×2 (08:24→21:02)
[2023-07-14] MEDS: Potassium Chloride 20 MEQ TAB PO SCH (08:24)
[2023-07-14] MEDS ORDERED: Apixaban 5 MG TAB PO SCH (09:00)
[2023-07-14] MEDS ORDERED: FLU VACC QS2023(65UP)/MF59C/PF 60 MCG/0.5 ML SYRINGE IM ONE (09:00)
[2023-07-14] MEDS ORDERED: Potassium Bicarbonate/Cit Ac 20 MEQ TAB PO SCH ×2 (10:15→10:45)
[2023-07-14] MEDS ORDERED: GoLYTELY 4,000 ml Bottle PO SCH (17:00)
[2023-07-14] MEDS: Atorvastatin Calcium 20 MG TAB PO SCH (21:02)
[2023-07-14] MEDS: Latanoprost 0.005% Ophth Soln 2.5 ml Bottle EA EYE SCH (21:02)
[2023-07-15 04:25] LABS: #Eosinphils 0.2 thou/uL (0.0-0.7); #Monocytes 0.8 thou/uL (0.11-0.59); #Neutrophils 2.5 thou/uL (1.40-6.50); %Basophils 0.4 % (0.0-1.0); %Eosinophils 4.6 % (0.0-10.0); %Lymphocytes 26.3 % (21.0-51.0); %Neutrophils 52.3 % (42.0-75.0); Hematocrit 28.9 % (36.0-47.0); Hemoglobin 9.2 g/dL (12.0-16.0); Mean Corpuscular HGB CONC 31.8 g/dL (32.0-36.0); Mean Corpuscular Hemoglobin 30.3 pg (27.0-31.0); Mean Corpuscular Volume 95.1 fl (78.0-98.0); Mean Platelet Volume 11.6 fL (7.4-10.4); Platelet Count 143 10x3/uL (130-400); Red Blood Cell (RBC) Count 3.04 mill/uL (4.20-5.40); White Blood Cell (WBC) Count 4.8 10x3/uL (4.8-10.8)
[2023-07-15 04:49] LABS: Anion Gap 10 mmol/L (10-20); BUN (Urea Nitrogen) 13 mg/dL (9.8-20.1); Calc. Creatinine Clearance 115 mL/min (70-130); Calcium 8.8 mg/dL (7.8-10.44); Carbon Dioxide 29 mmol/L (23-31); Chloride 105 mmol/L (98-107); Estimated GFR 63; Glucose 90 mg/dL (83-110); Potassium 3.4 mmol/L (3.5-5.1); Sodium 141 mmol/L (136-145)
[2023-07-15] MEDS: Furosemide 40 MG/4 ML VIAL SLOW IVP SCH ×2 (05:52→14:38)
[2023-07-15] MEDS ORDERED: fentaNYL 50 mcg/mL 1 mL Vial ONE (10:14)
[2023-07-15] MEDS ORDERED: PROPOFOL 200 MG/20 ML VIAL ONE (10:30)
[2023-07-15] MEDS ORDERED: ePHEDrine Sulfate 50 MG/10 ML VIAL ONE (10:30)
[2023-07-15] MEDS ORDERED: Ondansetron HCl/PF 4 MG/2 ML Vial IVP PRN (11:19)
[2023-07-15] MEDS ORDERED: Promethazine HCl 25 MG/ML VIAL IM PRN (11:19)
[2023-07-15] MEDS: Metamucil PACK PO SCH (11:58)
[2023-07-15] MEDS: Pantoprazole 40 MG VIAL IVP SCH ×2 (11:58→21:00)
[2023-07-15] MEDS: Spironolactone 25 MG TAB PO SCH (11:58)
[2023-07-15] MEDS: Empagliflozin 10 MG TAB PO SCH (11:59)
[2023-07-15] MEDS: Carvedilol 3.125 MG TAB PO SCH ×2 (11:59→16:24)
[2023-07-15] MEDS: Potassium Chloride 20 MEQ TAB PO SCH (11:59)
[2023-07-15] MEDS ORDERED: Iopamidol-370 76% 500 ML MDV (1 ML CHARGE) ONE (12:41)
[2023-07-15] MEDS: Latanoprost 0.005% Ophth Soln 2.5 ml Bottle EA EYE SCH (20:59)
[2023-07-15] MEDS: Atorvastatin Calcium 20 MG TAB PO SCH (20:59)
[2023-07-16 04:37] LABS: #Eosinphils 0.2 thou/uL (0.0-0.7); #Monocytes 0.8 thou/uL (0.11-0.59); %Basophils 0.4 % (0.0-1.0); %Eosinophils 4.3 % (0.0-10.0); %Lymphocytes 24.7 % (21.0-51.0); %Monocytes 14.9 % (0.0-10.0); %Neutrophils 55.5 % (42.0-75.0); Hematocrit 27.8 % (36.0-47.0); Hemoglobin 8.8 g/dL (12.0-16.0); Mean Corpuscular HGB CONC 31.7 g/dL (32.0-36.0); Mean Corpuscular Volume 94.9 fl (78.0-98.0); Mean Platelet Volume 11.8 fL (7.4-10.4); Platelet Count 146 10x3/uL (130-400); RBC Distribution Width 14.9 % (11.5-14.5); Red Blood Cell (RBC) Count 2.93 mill/uL (4.20-5.40); White Blood Cell (WBC) Count 5.3 10x3/uL (4.8-10.8)
[2023-07-16 05:17] LABS: Anion Gap 12 mmol/L (10-20); BUN (Urea Nitrogen) 12 mg/dL (9.8-20.1); Calc. Creatinine Clearance 100 mL/min (70-130); Calcium 8.5 mg/dL (7.8-10.44); Carbon Dioxide 27 mmol/L (23-31); Chloride 103 mmol/L (98-107); Estimated GFR 56; Glucose 86 mg/dL (83-110); Potassium 3.2 mmol/L (3.5-5.1); Sodium 139 mmol/L (136-145)
[2023-07-16] MEDS: Furosemide 40 MG/4 ML VIAL SLOW IVP SCH (06:25)
[2023-07-16] MEDS: Potassium Chloride 20 MEQ TAB PO SCH (09:26)
[2023-07-16] MEDS: Spironolactone 25 MG TAB PO SCH (09:26)
[2023-07-16] MEDS: Carvedilol 3.125 MG TAB PO SCH ×2 (09:26→17:03)
[2023-07-16] MEDS: Metamucil PACK PO SCH (09:27)
[2023-07-16] MEDS: Pantoprazole 40 MG VIAL IVP SCH ×2 (09:27→20:39)
[2023-07-16] MEDS ORDERED: Potassium Bicarbonate/Cit Ac 20 MEQ TAB PO SCH (09:30)
[2023-07-16] MEDS: Empagliflozin 10 MG TAB PO SCH (09:30)
[2023-07-16] MEDS: Atorvastatin Calcium 20 MG TAB PO SCH (20:38)
[2023-07-16] MEDS: Latanoprost 0.005% Ophth Soln 2.5 ml Bottle EA EYE SCH (20:38)
[2023-07-17 04:08] LABS: #Eosinphils 0.2 thou/uL (0.0-0.7); #Monocytes 0.9 thou/uL (0.11-0.59); #Neutrophils 3.8 thou/uL (1.40-6.50); %Basophils 0.5 % (0.0-1.0); %Lymphocytes 21.9 % (21.0-51.0); %Monocytes 14.4 % (0.0-10.0); Hemoglobin 9.4 g/dL (12.0-16.0); Mean Corpuscular HGB CONC 31.3 g/dL (32.0-36.0); Mean Corpuscular Hemoglobin 29.7 pg (27.0-31.0); Mean Corpuscular Volume 94.6 fl (78.0-98.0); Mean Platelet Volume 11.5 fL (7.4-10.4); Platelet Count 148 10x3/uL (130-400); RBC Distribution Width 14.8 % (11.5-14.5); Red Blood Cell (RBC) Count 3.17 mill/uL (4.20-5.40); White Blood Cell (WBC) Count 6.3 10x3/uL (4.8-10.8)
[2023-07-17 04:39] LABS: Anion Gap 14 mmol/L (10-20); BUN (Urea Nitrogen) 13 mg/dL (9.8-20.1); Calc. Creatinine Clearance 84 mL/min (70-130); Calcium 8.7 mg/dL (7.8-10.44); Carbon Dioxide 27 mmol/L (23-31); Chloride 105 mmol/L (98-107); Estimated GFR 45; Glucose 107 mg/dL (83-110); Potassium 3.6 mmol/L (3.5-5.1); Sodium 142 mmol/L (136-145)
[2023-07-17] MEDS: Spironolactone 25 MG TAB PO SCH (08:36)
[2023-07-17] MEDS: Metamucil PACK PO SCH (08:36)
[2023-07-17] MEDS: Pantoprazole 40 MG VIAL IVP SCH ×2 (08:36→20:38)
[2023-07-17] MEDS: Carvedilol 3.125 MG TAB PO SCH ×2 (08:37→16:04)
[2023-07-17] MEDS: Furosemide 40 MG TAB PO SCH (08:37)
[2023-07-17] MEDS: Potassium Chloride 20 MEQ TAB PO SCH (08:37)
[2023-07-17] MEDS: Empagliflozin 10 MG TAB PO SCH (08:37)
[2023-07-17] MEDS ORDERED: Scopolamine 1 mg/72 hour Patch TD SCH (16:00)
[2023-07-17] MEDS: Atorvastatin Calcium 20 MG TAB PO SCH (20:38)
[2023-07-17] MEDS: Latanoprost 0.005% Ophth Soln 2.5 ml Bottle EA EYE SCH (20:38)
[2023-07-18 04:42] LABS: #Eosinphils 0.2 thou/uL (0.0-0.7); #Monocytes 0.8 thou/uL (0.11-0.59); #Neutrophils 2.4 thou/uL (1.40-6.50); %Basophils 0.4 % (0.0-1.0); %Eosinophils 4.3 % (0.0-10.0); %Lymphocytes 29.6 % (21.0-51.0); %Monocytes 16.9 % (0.0-10.0); %Neutrophils 48.8 % (42.0-75.0); Hematocrit 28.7 % (36.0-47.0); Hemoglobin 9.1 g/dL (12.0-16.0); Mean Corpuscular HGB CONC 31.7 g/dL (32.0-36.0); Mean Corpuscular Volume 94.7 fl (78.0-98.0); Mean Platelet Volume 11.3 fL (7.4-10.4); Platelet Count 144 10x3/uL (130-400); RBC Distribution Width 14.7 % (11.5-14.5); Red Blood Cell (RBC) Count 3.03 mill/uL (4.20-5.40); White Blood Cell (WBC) Count 4.9 10x3/uL (4.8-10.8)
[2023-07-18 05:08] LABS: Anion Gap 12 mmol/L (10-20); BUN (Urea Nitrogen) 15 mg/dL (9.8-20.1); Calc. Creatinine Clearance 88 mL/min (70-130); Calcium 8.9 mg/dL (7.8-10.44); Carbon Dioxide 26 mmol/L (23-31); Chloride 106 mmol/L (98-107); Estimated GFR 50; Glucose 106 mg/dL (83-110); Potassium 3.6 mmol/L (3.5-5.1); Sodium 140 mmol/L (136-145)
[2023-07-18] MEDS ORDERED: Lidocaine-Prilocaine 2.5% Cream 5 GM TUBE ONE (06:53)
[2023-07-18] MEDS ORDERED: fentaNYL PF 100 MCG/2 ML SYRINGE ONE (06:53)
[2023-07-18] MEDS ORDERED: Bupivacaine 0.25% HCL 30 ML VIAL ONE (07:26)
[2023-07-18] MEDS ORDERED: EPINEPHrine 1 MG/ML VIAL ONE (07:26)
[2023-07-18] MEDS: Metamucil PACK PO SCH (08:23)
[2023-07-18] MEDS: Spironolactone 25 MG TAB PO SCH (08:24)
[2023-07-18] MEDS: Furosemide 40 MG TAB PO SCH (08:24)
[2023-07-18] MEDS: Potassium Chloride 20 MEQ TAB PO SCH (08:24)
[2023-07-18] MEDS: Carvedilol 3.125 MG TAB PO SCH ×2 (08:24→18:52)
[2023-07-18] MEDS: Pantoprazole 40 MG VIAL IVP SCH (08:24)
[2023-07-18] MEDS: Empagliflozin 10 MG TAB PO SCH (08:24)
[2023-07-18] MEDS ORDERED: Glycopyrrolate 0.2 MG/ML 5 ML SYRINGE ONE (09:27)
[2023-07-18] MEDS ORDERED: PROPOFOL 200 MG/20 ML VIAL ONE (09:27)
[2023-07-18] MEDS ORDERED: ePHEDrine Sulfate 50 MG/10 ML VIAL ONE (09:27)
[2023-07-18] MEDS ORDERED: Ondansetron PF 4 MG/2 ML Vial ONE (09:27)
[2023-07-18] MEDS ORDERED: Rocuronium Bromide 10 MG/ML (10ML VIAL) ONE (09:27)
[2023-07-18] MEDS ORDERED: diphenhydrAMINE 50 MG/ML VIAL ONE (09:27)
[2023-07-18] MEDS ORDERED: Piperacillin/Tazobactam 3.375 GM VIAL ONE (09:50)
[2023-07-18] MEDS ORDERED: Sodium Chloride 0.9% 100 ML ONE (09:50)
[2023-07-18] MEDS ORDERED: SUGAMMADEX SODIUM 200 MG/2 ML VIAL ONE (10:51)
[2023-07-18] MEDS ORDERED: Ondansetron HCl/PF 4 MG/2 ML Vial IVP PRN (11:12)
[2023-07-18] MEDS ORDERED: traMADol HCl 50 MG TAB PO PRN (13:31)
[2023-07-18] MEDS ORDERED: Piperacillin/Tazobactam 3.375 GM in Sodium Chloride 0.9% 100 ML IVPB SCH (15:15)
[2023-07-18] MEDS: Acetaminophen 500 MG TAB PO SCH (20:48)
[2023-07-18] MEDS: Atorvastatin Calcium 20 MG TAB PO SCH (20:49)
[2023-07-18] MEDS: Latanoprost 0.005% Ophth Soln 2.5 ml Bottle EA EYE SCH (20:49)
[2023-07-19 04:59] LABS: #Eosinphils 0.1 thou/uL (0.0-0.7); #Neutrophils 8.6 thou/uL (1.40-6.50); %Basophils 0.2 % (0.0-1.0); %Eosinophils 0.7 % (0.0-10.0); %Neutrophils 79.7 % (42.0-75.0); Hematocrit 28.7 % (36.0-47.0); Hemoglobin 9.1 g/dL (12.0-16.0); Mean Corpuscular HGB CONC 31.7 g/dL (32.0-36.0); Mean Corpuscular Hemoglobin 29.6 pg (27.0-31.0); Mean Corpuscular Volume 93.5 fl (78.0-98.0); Platelet Count 154 10x3/uL (130-400); RBC Distribution Width 14.7 % (11.5-14.5); Red Blood Cell (RBC) Count 3.07 mill/uL (4.20-5.40); White Blood Cell (WBC) Count 10.7 10x3/uL (4.8-10.8)
[2023-07-19 05:31] LABS: ALT (SGPT) 9 U/L (8-55); AST (SGOT) 11 U/L (5-34); Alkaline Phosphatase 92 U/L (40-110); Anion Gap 15 mmol/L (10-20); BUN (Urea Nitrogen) 19 mg/dL (9.8-20.1); Calc. Creatinine Clearance 86 mL/min (70-130); Calcium 8.3 mg/dL (7.8-10.44); Carbon Dioxide 23 mmol/L (23-31); Chloride 106 mmol/L (98-107); Estimated GFR 50; Globulin 2.2 g/dL (2.4-3.5); Glucose 144 mg/dL (83-110); Potassium 3.6 mmol/L (3.5-5.1); Protein, Total 5.2 g/dL (5.8-8.1); Sodium 140 mmol/L (136-145)
[2023-07-19] MEDS: Acetaminophen 500 MG TAB PO SCH ×2 (06:13→09:33)
[2023-07-19] MEDS ORDERED: Acetaminophen 500 MG TAB PO SCH ×2 (08:15→18:00)
[2023-07-19] MEDS ORDERED: Polyethylene Glycol 3350 17 GM Packet PO SCH (09:00)
[2023-07-19] MEDS: Senokot S 8.6-50 MG TAB PO SCH ×2 (09:26→20:11)
[2023-07-19] MEDS: Spironolactone 25 MG TAB PO SCH (09:27)
[2023-07-19] MEDS: Potassium Chloride 20 MEQ TAB PO SCH (09:27)
[2023-07-19] MEDS: Furosemide 40 MG TAB PO SCH (09:27)
[2023-07-19] MEDS: Empagliflozin 10 MG TAB PO SCH (09:27)
[2023-07-19] MEDS: Metamucil PACK PO SCH (09:27)
[2023-07-19] MEDS: Latanoprost 0.005% Ophth Soln 2.5 ml Bottle EA EYE SCH (20:11)
[2023-07-19] MEDS: Atorvastatin Calcium 20 MG TAB PO SCH (20:11)
[2023-07-19 20:42] VITALS: BP 120/56; TEMP 99
[2023-07-19] MEDS ORDERED: Apixaban 5 MG TAB PO SCH (21:00)
== END 2023-07-19 20:25 | DRG 264 ==
LOC: ERS 13:14 → 2NO 19:45 → INTOOBSV 19:45 → OBSVTOIN 07-13 08:44
PROVIDERS: ADMIT Student in an Organized Health Care Education/Training Program; ATTEND Internal Medicine
PROC: 0DJ08ZZ Inspection of Upper Intestinal Tract, Via Natural or Artificial Opening Endoscopic (ICD-10-PCS; principal; 2023-07-15)
PROC: 0DBK8ZZ Excision of Ascending Colon, Via Natural or Artificial Opening Endoscopic (ICD-10-PCS; 2023-07-15)
PROC: 0DBL8ZZ Excision of Transverse Colon, Via Natural or Artificial Opening Endoscopic (ICD-10-PCS; 2023-07-15)
PROC: 0DBN8ZZ Excision of Sigmoid Colon, Via Natural or Artificial Opening Endoscopic (ICD-10-PCS; 2023-07-15)
PROC: 0DBH4ZZ Excision of Cecum, Percutaneous Endoscopic Approach (ICD-10-PCS; 2023-07-18)
PROC: 0DBJ8ZX Excision of Appendix, Via Natural or Artificial Opening Endoscopic, Diagnostic (ICD-10-PCS; 2023-07-18)
PROC: 0DTJ4ZZ Resection of Appendix, Percutaneous Endoscopic Approach (ICD-10-PCS; 2023-07-18)
DX: I13.0 Hypertensive heart and chronic kidney disease with heart failure and stage 1 through stage 4 chronic kidney disease, or unspecified chronic kidney disease (principal); I50.33 Acute on chronic diastolic (congestive) heart failure; L03.115 Cellulitis of right lower limb; C18.9 Malignant neoplasm of colon, unspecified; I48.21 Permanent atrial fibrillation; Z68.42 Body mass index [BMI] 45.0-49.9, adult; K92.2 Gastrointestinal hemorrhage, unspecified; K86.2 Cyst of pancreas; Q43.8 Other specified congenital malformations of intestine; L03.116 Cellulitis of left lower limb; D12.1 Benign neoplasm of appendix; E78.5 Hyperlipidemia, unspecified; H40.9 Unspecified glaucoma; E66.01 Morbid (severe) obesity due to excess calories; D50.9 Iron deficiency anemia, unspecified; D69.6 Thrombocytopenia, unspecified; N18.9 Chronic kidney disease, unspecified; E11.22 Type 2 diabetes mellitus with diabetic chronic kidney disease; N20.0 Calculus of kidney; K38.8 Other specified diseases of appendix; D12.5 Benign neoplasm of sigmoid colon; D12.3 Benign neoplasm of transverse colon; D12.2 Benign neoplasm of ascending colon; Z88.2 Allergy status to sulfonamides; Z98.890 Other specified postprocedural states; Z79.899 Other long term (current) drug therapy; Z79.01 Long term (current) use of anticoagulants; Z90.710 Acquired absence of both cervix and uterus; Z98.51 Tubal ligation status
CPT/HCPCS: 36415; 36416; 51701; 71045; 74177; 80048; 80053; 81001; 82274; 82728; 83540; 83550; 83630; 83735; 83880; 84484; 85025; 87086; 88304; 88305; 90471; 90694; 93005; 93798; 94760; 96374; 96376; 97139; A4314; A4649; C1713; C9113; G0008; G0378; J0171; J1200; J1815; J1940; J2405; J2543; J2704; J3010; J3490; Q9967; S0020

== ENCOUNTER 2023-09-18 03:37 | Inpatient (IN) | payer MEDICARE ==
[2023-09-18 04:36] LABS: Hematocrit 29.4 % (36.0-47.0); Hemoglobin 9.3 g/dL (12.0-16.0); Manual Diff?? YES; Mean Corpuscular HGB CONC 31.6 g/dL (32.0-36.0); Mean Corpuscular Hemoglobin 26.3 pg (27.0-31.0); Mean Corpuscular Volume 83.1 fl (78.0-98.0); Mean Platelet Volume 10.6 fL (7.4-10.4); Platelet Count 327 10x3/uL (130-400); RBC Distribution Width 16.8 % (11.5-14.5); Red Blood Cell (RBC) Count 3.54 mill/uL (4.20-5.40); White Blood Cell (WBC) Count 38.5 10x3/uL (4.8-10.8)
[2023-09-18 04:53] LABS: Delete Auto Diff?? YES
[2023-09-18 05:02] LABS: ALT (SGPT) 8 U/L (8-55); AST (SGOT) 16 U/L (5-34); Albumin 2.6 g/dL (3.4-4.8); Alkaline Phosphatase 162 U/L (40-110); Anion Gap 13 mmol/L (10-20); BUN (Urea Nitrogen) 18 mg/dL (9.8-20.1); Bilirubin, Total 2.1 mg/dL (0.2-1.2); Calc. Creatinine Clearance 0 mL/min (70-130); Calcium 8.3 mg/dL (7.8-10.44); Carbon Dioxide 20 mmol/L (23-31); Chloride 104 mmol/L (98-107); Estimated GFR 58; Globulin 3.3 g/dL (2.4-3.5); Glucose 196 mg/dL (83-110); Magnesium 1.9 mg/dL (1.6-2.6); Potassium 3.4 mmol/L (3.5-5.1); Protein, Total 5.9 g/dL (5.8-8.1); Sodium 134 mmol/L (136-145)
[2023-09-18 05:07] LABS: Troponin I 0.068 ng/mL (< 0.028)
[2023-09-18 05:29] LABS: Band 5 % (5-11); Burr Cells SLIGHT = 2-5 cells HPF (0-1); CellaVision Operator ID LAB.NR; Hypochromia SLIGHT = 6-15 cells HPF (0-5); Large Platelets 3.9 % (0-5); Monocytes 3 % (0-10); Neutrophil 92 % (42-75); Ovalocytes SLIGHT = 2-5 cells HPF (0-1); Platelet Adequacy Comment Platelets Normal; Polychromasia SLIGHT = 2-3 cells HPF (0-2); Smudge Cells 5.9 %; Total Cell Count 102
[2023-09-18 06:10] LABS: Bacteria/HPF None Seen HPF (None Seen); Bilirubin Negative (Negative); Blood, Urine Negative (Negative); CAUTI Indications for Culture Dysuria,urgency,freq; Clarity Clear (Clear); Glucose, Urine (Dipstick) Greater than 1000 mg/dL (Negative); Ketone, Urine Negative (Negative); Leukocyte Negative Leu/uL (Negative); Nitrite Negative (Negative); Protein, Urine (Dipstick) Negative (Neg-Trace); RBC/HPF 0-3 HPF (0-3); Specific Gravity, Urine 1.018 (1.002-1.036); Squamous Epithelial 0-3 HPF (0-3); WBC/HPF 0-3 HPF (0-3); Yeast-Budding Rare HPF (None Seen); pH, Urine 5.5 (5.0-9.0)
[2023-09-18 06:12] LABS: Urine Culture Reflex No No
[2023-09-18] MEDS ORDERED: cefTRIAXone (ROCEPHIN) 2 GM VIAL ONE (06:13)
[2023-09-18] MEDS ORDERED: Sodium Chloride 0.9% 100 ML ONE (06:13)
[2023-09-18] MEDS ORDERED: Ondansetron ODT 4 MG TAB PO PRN (08:17)
[2023-09-18] MEDS ORDERED: Acetaminophen 325 MG TAB PO PRN (08:17)
[2023-09-18] MEDS ORDERED: Ondansetron PF 4 MG/2 ML Vial IVP PRN (08:17)
[2023-09-18] MEDS ORDERED: Vancomycin 1 GM/200 ML (FROZEN) BAG ONE (08:32)
[2023-09-18] MEDS ORDERED: metroNIDAZOLE 500 MG (100 mL) BAG ONE (08:32)
[2023-09-18] MEDS ORDERED: Dextrose 50% Abboject 50 ML SYRINGE SLOW IVP PRN (09:04)
[2023-09-18] MEDS ORDERED: Glucagon 1 MG/ML KIT IM PRN (09:04)
[2023-09-18] MEDS ORDERED: HumaLOG 300 UNITS/3 ML VIAL SC PRN (09:04)
[2023-09-18] MEDS ORDERED: Dextrose 5% in Water 1,000 ML IV PRN (09:04)
[2023-09-18 09:21] LABS: Troponin I 0.055 ng/mL (< 0.028)
[2023-09-18] MEDS ORDERED: Iopamidol-370 76% 500 ML MDV (1 ML CHARGE) ONE (09:59)
[2023-09-18] MEDS ORDERED: Apixaban 5 MG TAB ONE (10:33)
[2023-09-18] MEDS ORDERED: Atorvastatin Calcium 20 MG TAB ONE (10:33)
[2023-09-18] MEDS: Apixaban 5 MG TAB PO SCH ×2 (10:41→21:25)
[2023-09-18] MEDS: Atorvastatin Calcium 20 MG TAB PO SCH (10:41)
[2023-09-18] MEDS ORDERED: HumaLOG 300 UNITS/3 ML VIAL ONE (11:18)
[2023-09-18] MEDS: HumaLOG 300 UNITS/3 ML VIAL SC PRN ×2 (11:23→17:29)
[2023-09-18] MEDS ORDERED: Magnesium 2 GM/50 ML(in water) 2 GM in Premix 1 BAG IVPB SCH (11:45)
[2023-09-18] MEDS: Montelukast Sodium 10 mg Tablet PO SCH (11:48)
[2023-09-18] MEDS: Citalopram 20 MG TAB PO SCH (11:48)
[2023-09-18] MEDS: Empagliflozin 10 MG TAB PO SCH (11:48)
[2023-09-18] MEDS ORDERED: Sodium Chloride 0.9% 1,000 ML IV SCH (12:30)
[2023-09-18] MEDS ORDERED: Magnesium 2 GM/50 ML BAG (IN WATER) ONE (12:36)
[2023-09-18 14:31] LABS: Troponin I 0.032 ng/mL (< 0.028)
[2023-09-18 21:22] VITALS: BMI 43.7
[2023-09-18] MEDS: Latanoprost 0.005% Ophth Soln 2.5 ml Bottle EA EYE SCH (21:25)
[2023-09-19] MEDS: cefTRIAXone\\ROCEPHIN 2 GM in Sodium Chloride 0.9% 100 ML IVPB SCH (05:04)
[2023-09-19] MEDS ORDERED: Vancomycin (BATCH) 2 GM in Premix 1 BAG IVPB SCH (06:15)
[2023-09-19 06:56] LABS: #Basophils 0.1 thou/uL (0.0-0.2); #Eosinphils 0.3 thou/uL (0.0-0.7); #Monocytes 1.6 thou/uL (0.11-0.59); #Neutrophils 21.2 thou/uL (1.40-6.50); %Basophils 0.2 % (0.0-1.0); %Eosinophils 1.2 % (0.0-10.0); %Lymphocytes 3.6 % (21.0-51.0); %Monocytes 6.7 % (0.0-10.0); Hematocrit 28.9 % (36.0-47.0); Mean Corpuscular HGB CONC 31.1 g/dL (32.0-36.0); Mean Corpuscular Hemoglobin 26.8 pg (27.0-31.0); Mean Platelet Volume 10.5 fL (7.4-10.4); Platelet Count 307 10x3/uL (130-400); RBC Distribution Width 16.8 % (11.5-14.5); Red Blood Cell (RBC) Count 3.36 mill/uL (4.20-5.40); White Blood Cell (WBC) Count 24.4 10x3/uL (4.8-10.8)
[2023-09-19 07:21] LABS: Anion Gap 12 mmol/L (10-20); BUN (Urea Nitrogen) 17 mg/dL (9.8-20.1); Calc. Creatinine Clearance 129 mL/min (70-130); Calcium 8.1 mg/dL (7.8-10.44); Carbon Dioxide 24 mmol/L (23-31); Chloride 103 mmol/L (98-107); Estimated GFR 86; Glucose 92 mg/dL (83-110); Potassium 3.2 mmol/L (3.5-5.1); Sodium 136 mmol/L (136-145)
[2023-09-19 07:22] LABS: ALT (SGPT) 8 U/L (8-55); AST (SGOT) 9 U/L (5-34); Albumin 2.4 g/dL (3.4-4.8); Alkaline Phosphatase 136 U/L (40-110); Bilirubin, Direct 0.6 mg/dL (0.1-0.3); Bilirubin, Total 0.9 mg/dL (0.2-1.2); Phosphorus 2.6 mg/dL (2.3-4.7)
[2023-09-19] MEDS: Spironolactone 25 MG TAB PO SCH (09:23)
[2023-09-19] MEDS: Montelukast Sodium 10 mg Tablet PO SCH (09:23)
[2023-09-19] MEDS: Atorvastatin Calcium 20 MG TAB PO SCH (09:23)
[2023-09-19] MEDS: Citalopram 20 MG TAB PO SCH (09:23)
[2023-09-19] MEDS: Apixaban 5 MG TAB PO SCH ×2 (09:23→20:23)
[2023-09-19] MEDS: Empagliflozin 10 MG TAB PO SCH (09:23)
[2023-09-19] MEDS: HumaLOG 300 UNITS/3 ML VIAL SC PRN (13:23)
[2023-09-19] MEDS: Vancomycin 1 GM in Premix 1 BAG IVPB SCH (18:22)
[2023-09-19] MEDS: Carvedilol 3.125 MG TAB PO SCH (20:23)
[2023-09-19] MEDS: Latanoprost 0.005% Ophth Soln 2.5 ml Bottle EA EYE SCH (20:23)
[2023-09-20] MEDS: cefTRIAXone\\ROCEPHIN 2 GM in Sodium Chloride 0.9% 100 ML IVPB SCH (04:56)
[2023-09-20] MEDS: Vancomycin 1 GM in Premix 1 BAG IVPB SCH ×2 (05:31→17:41)
[2023-09-20] MEDS: Citalopram 20 MG TAB PO SCH (08:45)
[2023-09-20] MEDS: Atorvastatin Calcium 20 MG TAB PO SCH (08:45)
[2023-09-20] MEDS: Montelukast Sodium 10 mg Tablet PO SCH (08:45)
[2023-09-20] MEDS: Empagliflozin 10 MG TAB PO SCH (08:45)
[2023-09-20] MEDS: Apixaban 5 MG TAB PO SCH ×2 (08:45→21:22)
[2023-09-20] MEDS: Spironolactone 25 MG TAB PO SCH (08:46)
[2023-09-20] MEDS: Furosemide 40 MG TAB PO SCH (08:47)
[2023-09-20] MEDS: Carvedilol 3.125 MG TAB PO SCH ×3 (09:47→21:25)
[2023-09-20 13:25] LABS: #Basophils 0.1 thou/uL (0.0-0.2); #Eosinphils 0.2 thou/uL (0.0-0.7); #Neutrophils 14.3 thou/uL (1.40-6.50); %Basophils 0.4 % (0.0-1.0); %Eosinophils 1.1 % (0.0-10.0); %Lymphocytes 6.6 % (21.0-51.0); %Monocytes 6.2 % (0.0-10.0); %Neutrophils 85.1 % (42.0-75.0); Hematocrit 33.9 % (36.0-47.0); Hemoglobin 10.3 g/dL (12.0-16.0); Mean Corpuscular HGB CONC 30.4 g/dL (32.0-36.0); Mean Corpuscular Volume 85.6 fl (78.0-98.0); Mean Platelet Volume 10.7 fL (7.4-10.4); Platelet Count 376 10x3/uL (130-400); RBC Distribution Width 17.1 % (11.5-14.5); Red Blood Cell (RBC) Count 3.96 mill/uL (4.20-5.40); White Blood Cell (WBC) Count 16.7 10x3/uL (4.8-10.8)
[2023-09-20 13:52] LABS: Anion Gap 15 mmol/L (10-20); BUN (Urea Nitrogen) 15 mg/dL (9.8-20.1); Calc. Creatinine Clearance 118 mL/min (70-130); Calcium 8.3 mg/dL (7.8-10.44); Carbon Dioxide 22 mmol/L (23-31); Chloride 102 mmol/L (98-107); Estimated GFR 77; Glucose 169 mg/dL (83-110); Potassium 3.8 mmol/L (3.5-5.1); Sodium 135 mmol/L (136-145)
[2023-09-20] MEDS: Latanoprost 0.005% Ophth Soln 2.5 ml Bottle EA EYE SCH (21:22)
[2023-09-21] MEDS: cefTRIAXone\\ROCEPHIN 2 GM in Sodium Chloride 0.9% 100 ML IVPB SCH (06:08)
[2023-09-21 06:24] LABS: #Eosinphils 0.2 thou/uL (0.0-0.7); #Monocytes 1.1 thou/uL (0.11-0.59); #Neutrophils 7.9 thou/uL (1.40-6.50); %Basophils 0.3 % (0.0-1.0); %Eosinophils 1.7 % (0.0-10.0); %Lymphocytes 13.5 % (21.0-51.0); %Monocytes 10.3 % (0.0-10.0); %Neutrophils 73.5 % (42.0-75.0); Hematocrit 30.4 % (36.0-47.0); Hemoglobin 9.2 g/dL (12.0-16.0); Mean Corpuscular HGB CONC 30.3 g/dL (32.0-36.0); Mean Corpuscular Hemoglobin 25.9 pg (27.0-31.0); Mean Corpuscular Volume 85.6 fl (78.0-98.0); Mean Platelet Volume 10.8 fL (7.4-10.4); Platelet Count 309 10x3/uL (130-400); Red Blood Cell (RBC) Count 3.55 mill/uL (4.20-5.40); White Blood Cell (WBC) Count 10.8 10x3/uL (4.8-10.8)
[2023-09-21 06:45] LABS: Vancomycin, Trough 17.8 ug/mL
[2023-09-21 06:56] LABS: Anion Gap 13 mmol/L (10-20); BUN (Urea Nitrogen) 14 mg/dL (9.8-20.1); Calc. Creatinine Clearance 116 mL/min (70-130); Calcium 8.2 mg/dL (7.8-10.44); Carbon Dioxide 23 mmol/L (23-31); Chloride 106 mmol/L (98-107); Estimated GFR 76; Glucose 123 mg/dL (83-110); Potassium 3.5 mmol/L (3.5-5.1); Sodium 138 mmol/L (136-145)
[2023-09-21] MEDS: Montelukast Sodium 10 mg Tablet PO SCH (09:48)
[2023-09-21] MEDS: Apixaban 5 MG TAB PO SCH ×2 (09:48→20:15)
[2023-09-21] MEDS: Citalopram 20 MG TAB PO SCH (09:48)
[2023-09-21] MEDS: Atorvastatin Calcium 20 MG TAB PO SCH (09:48)
[2023-09-21] MEDS: Spironolactone 25 MG TAB PO SCH (09:48)
[2023-09-21] MEDS: Furosemide 40 MG TAB PO SCH (09:48)
[2023-09-21] MEDS: Carvedilol 3.125 MG TAB PO SCH (09:49)
[2023-09-21] MEDS: Latanoprost 0.005% Ophth Soln 2.5 ml Bottle EA EYE SCH (20:15)
[2023-09-22] MEDS: cefTRIAXone\\ROCEPHIN 2 GM in Sodium Chloride 0.9% 100 ML IVPB SCH (06:00)
[2023-09-22] MEDS: Citalopram 20 MG TAB PO SCH (09:20)
[2023-09-22] MEDS: Spironolactone 25 MG TAB PO SCH (09:20)
[2023-09-22] MEDS: Furosemide 40 MG TAB PO SCH (09:21)
[2023-09-22] MEDS: Apixaban 5 MG TAB PO SCH ×2 (09:21→20:35)
[2023-09-22] MEDS: Montelukast Sodium 10 mg Tablet PO SCH (09:21)
[2023-09-22] MEDS: Atorvastatin Calcium 20 MG TAB PO SCH (09:21)
[2023-09-22] MEDS: Latanoprost 0.005% Ophth Soln 2.5 ml Bottle EA EYE SCH (20:35)
[2023-09-23] MEDS: cefTRIAXone\\ROCEPHIN 2 GM in Sodium Chloride 0.9% 100 ML IVPB SCH (05:22)
[2023-09-23] MEDS: Montelukast Sodium 10 mg Tablet PO SCH ×2 (10:08→13:32)
[2023-09-23] MEDS: Atorvastatin Calcium 20 MG TAB PO SCH (10:08)
[2023-09-23] MEDS: Apixaban 5 MG TAB PO SCH ×2 (10:08→21:09)
[2023-09-23] MEDS: Spironolactone 25 MG TAB PO SCH (10:08)
[2023-09-23] MEDS: Citalopram 20 MG TAB PO SCH (10:09)
[2023-09-23] MEDS: Furosemide 40 MG TAB PO SCH (10:09)
[2023-09-23] MEDS: HumaLOG 300 UNITS/3 ML VIAL SC PRN (13:48)
[2023-09-23] MEDS: Latanoprost 0.005% Ophth Soln 2.5 ml Bottle EA EYE SCH (21:09)
[2023-09-24 05:57] LABS: #Eosinphils 0.2 thou/uL (0.0-0.7); #Monocytes 1.2 thou/uL (0.11-0.59); #Neutrophils 5.5 thou/uL (1.40-6.50); %Basophils 0.4 % (0.0-1.0); %Eosinophils 1.9 % (0.0-10.0); %Lymphocytes 18.3 % (21.0-51.0); %Monocytes 13.6 % (0.0-10.0); %Neutrophils 65.1 % (42.0-75.0); Hematocrit 30.8 % (36.0-47.0); Hemoglobin 9.2 g/dL (12.0-16.0); Mean Corpuscular HGB CONC 29.9 g/dL (32.0-36.0); Mean Corpuscular Hemoglobin 25.7 pg (27.0-31.0); Mean Platelet Volume 10.8 fL (7.4-10.4); Platelet Count 289 10x3/uL (130-400); Red Blood Cell (RBC) Count 3.58 mill/uL (4.20-5.40); White Blood Cell (WBC) Count 8.5 10x3/uL (4.8-10.8)
[2023-09-24] MEDS: cefTRIAXone\\ROCEPHIN 2 GM in Sodium Chloride 0.9% 100 ML IVPB SCH (06:19)
[2023-09-24 06:24] LABS: Anion Gap 11 mmol/L (10-20); BUN (Urea Nitrogen) 13 mg/dL (9.8-20.1); Calc. Creatinine Clearance 127 mL/min (70-130); Calcium 8.1 mg/dL (7.8-10.44); Carbon Dioxide 26 mmol/L (23-31); Chloride 105 mmol/L (98-107); Estimated GFR 84; Glucose 160 mg/dL (83-110); Potassium 3.5 mmol/L (3.5-5.1); Sodium 138 mmol/L (136-145)
[2023-09-24] MEDS ORDERED: Potassium Chloride 20 MEQ TAB PO SCH (09:45)
[2023-09-24] MEDS: Apixaban 5 MG TAB PO SCH ×2 (09:58→21:07)
[2023-09-24] MEDS: Citalopram 20 MG TAB PO SCH (09:58)
[2023-09-24] MEDS: Atorvastatin Calcium 20 MG TAB PO SCH (09:58)
[2023-09-24] MEDS: Spironolactone 25 MG TAB PO SCH (09:58)
[2023-09-24] MEDS: Furosemide 40 MG TAB PO SCH (09:59)
[2023-09-24] MEDS: Montelukast Sodium 10 mg Tablet PO SCH (09:59)
[2023-09-24] MEDS: HumaLOG 300 UNITS/3 ML VIAL SC PRN (17:57)
[2023-09-24] MEDS: Latanoprost 0.005% Ophth Soln 2.5 ml Bottle EA EYE SCH (21:08)
[2023-09-25] MEDS: cefTRIAXone\\ROCEPHIN 2 GM in Sodium Chloride 0.9% 100 ML IVPB SCH (06:30)
[2023-09-25] MEDS: HumaLOG 300 UNITS/3 ML VIAL SC PRN ×2 (06:31→11:07)
[2023-09-25] MEDS: Spironolactone 25 MG TAB PO SCH (09:05)
[2023-09-25] MEDS: Montelukast Sodium 10 mg Tablet PO SCH (09:05)
[2023-09-25] MEDS: Atorvastatin Calcium 20 MG TAB PO SCH (09:05)
[2023-09-25] MEDS: Apixaban 5 MG TAB PO SCH ×2 (09:06→20:38)
[2023-09-25] MEDS: Furosemide 40 MG TAB PO SCH (09:06)
[2023-09-25] MEDS: Citalopram 20 MG TAB PO SCH (09:06)
[2023-09-25] MEDS: Latanoprost 0.005% Ophth Soln 2.5 ml Bottle EA EYE SCH (20:38)
[2023-09-26] MEDS: cefTRIAXone\\ROCEPHIN 2 GM in Sodium Chloride 0.9% 100 ML IVPB SCH (06:29)
[2023-09-26] MEDS: Montelukast Sodium 10 mg Tablet PO SCH (08:56)
[2023-09-26] MEDS: Spironolactone 25 MG TAB PO SCH (08:56)
[2023-09-26] MEDS: Furosemide 40 MG TAB PO SCH (08:56)
[2023-09-26] MEDS: Citalopram 20 MG TAB PO SCH (08:56)
[2023-09-26] MEDS: Apixaban 5 MG TAB PO SCH ×2 (08:56→21:03)
[2023-09-26] MEDS: Atorvastatin Calcium 20 MG TAB PO SCH (08:56)
[2023-09-26] MEDS: HumaLOG 300 UNITS/3 ML VIAL SC PRN (11:58)
[2023-09-26] MEDS: Latanoprost 0.005% Ophth Soln 2.5 ml Bottle EA EYE SCH (21:03)
[2023-09-27] MEDS: cefTRIAXone\\ROCEPHIN 2 GM in Sodium Chloride 0.9% 100 ML IVPB SCH (05:47)
[2023-09-27] MEDS: Citalopram 20 MG TAB PO SCH (09:28)
[2023-09-27] MEDS: Furosemide 40 MG TAB PO SCH (09:28)
[2023-09-27] MEDS: Spironolactone 25 MG TAB PO SCH (09:28)
[2023-09-27] MEDS: Atorvastatin Calcium 20 MG TAB PO SCH (09:28)
[2023-09-27] MEDS: Apixaban 5 MG TAB PO SCH ×2 (09:28→21:19)
[2023-09-27] MEDS: Montelukast Sodium 10 mg Tablet PO SCH (09:29)
[2023-09-27] MEDS: HumaLOG 300 UNITS/3 ML VIAL SC PRN ×2 (11:02→16:17)
[2023-09-27] MEDS: Latanoprost 0.005% Ophth Soln 2.5 ml Bottle EA EYE SCH (21:19)
[2023-09-28 05:24] LABS: #Eosinphils 0.2 thou/uL (0.0-0.7); #Monocytes 0.7 thou/uL (0.11-0.59); #Neutrophils 4.2 thou/uL (1.40-6.50); %Basophils 0.6 % (0.0-1.0); %Eosinophils 2.6 % (0.0-10.0); %Lymphocytes 26.6 % (21.0-51.0); %Monocytes 10.2 % (0.0-10.0); %Neutrophils 59.7 % (42.0-75.0); Hematocrit 31.1 % (36.0-47.0); Hemoglobin 9.3 g/dL (12.0-16.0); Mean Corpuscular HGB CONC 29.9 g/dL (32.0-36.0); Mean Corpuscular Hemoglobin 25.3 pg (27.0-31.0); Mean Corpuscular Volume 84.5 fl (78.0-98.0); Mean Platelet Volume 10.9 fL (7.4-10.4); Platelet Count 278 10x3/uL (130-400); RBC Distribution Width 17.2 % (11.5-14.5); Red Blood Cell (RBC) Count 3.68 mill/uL (4.20-5.40)
[2023-09-28 05:49] LABS: ALT (SGPT) 8 U/L (8-55); AST (SGOT) 11 U/L (5-34); Albumin 2.6 g/dL (3.4-4.8); Alkaline Phosphatase 137 U/L (40-110); Anion Gap 8 mmol/L (10-20); BUN (Urea Nitrogen) 13 mg/dL (9.8-20.1); Bilirubin, Total 0.5 mg/dL (0.2-1.2); Calc. Creatinine Clearance 104 mL/min (70-130); Calcium 8.4 mg/dL (7.8-10.44); Carbon Dioxide 29 mmol/L (23-31); Chloride 103 mmol/L (98-107); Estimated GFR 66; Globulin 3.2 g/dL (2.4-3.5); Glucose 153 mg/dL (83-110); Protein, Total 5.8 g/dL (5.8-8.1); Sodium 136 mmol/L (136-145)
[2023-09-28] MEDS: cefTRIAXone\\ROCEPHIN 2 GM in Sodium Chloride 0.9% 100 ML IVPB SCH (05:57)
[2023-09-28] MEDS: HumaLOG 300 UNITS/3 ML VIAL SC PRN ×2 (05:57→13:07)
[2023-09-28] MEDS: Spironolactone 25 MG TAB PO SCH (09:19)
[2023-09-28] MEDS: Apixaban 5 MG TAB PO SCH ×2 (09:19→20:24)
[2023-09-28] MEDS: Atorvastatin Calcium 20 MG TAB PO SCH (09:20)
[2023-09-28] MEDS: Citalopram 20 MG TAB PO SCH (09:20)
[2023-09-28] MEDS: Furosemide 40 MG TAB PO SCH (09:20)
[2023-09-28] MEDS: Montelukast Sodium 10 mg Tablet PO SCH (09:22)
[2023-09-28] MEDS: Latanoprost 0.005% Ophth Soln 2.5 ml Bottle EA EYE SCH (20:24)
[2023-09-29] MEDS: cefTRIAXone\\ROCEPHIN 2 GM in Sodium Chloride 0.9% 100 ML IVPB SCH (06:29)
[2023-09-29] MEDS: Atorvastatin Calcium 20 MG TAB PO SCH (08:57)
[2023-09-29] MEDS: Furosemide 40 MG TAB PO SCH (08:57)
[2023-09-29] MEDS: Citalopram 20 MG TAB PO SCH (08:57)
[2023-09-29] MEDS: Apixaban 5 MG TAB PO SCH ×2 (08:57→21:04)
[2023-09-29] MEDS: Spironolactone 25 MG TAB PO SCH (08:57)
[2023-09-29] MEDS: Montelukast Sodium 10 mg Tablet PO SCH ×2 (09:03→09:07)
[2023-09-29] MEDS: Latanoprost 0.005% Ophth Soln 2.5 ml Bottle EA EYE SCH (21:03)
[2023-09-30] MEDS: cefTRIAXone\\ROCEPHIN 2 GM in Sodium Chloride 0.9% 100 ML IVPB SCH (05:53)
[2023-09-30] MEDS: HumaLOG 300 UNITS/3 ML VIAL SC PRN (05:54)
[2023-09-30] MEDS: Furosemide 40 MG TAB PO SCH (09:11)
[2023-09-30] MEDS: Apixaban 5 MG TAB PO SCH ×2 (09:11→20:57)
[2023-09-30] MEDS: Spironolactone 25 MG TAB PO SCH (09:11)
[2023-09-30] MEDS: Citalopram 20 MG TAB PO SCH (09:11)
[2023-09-30] MEDS: Atorvastatin Calcium 20 MG TAB PO SCH (09:12)
[2023-09-30] MEDS: Montelukast Sodium 10 mg Tablet PO SCH (09:13)
[2023-09-30] MEDS: Latanoprost 0.005% Ophth Soln 2.5 ml Bottle EA EYE SCH (20:57)
[2023-10-01] MEDS: cefTRIAXone\\ROCEPHIN 2 GM in Sodium Chloride 0.9% 100 ML IVPB SCH (04:58)
[2023-10-01 07:59] VITALS: BP 103/59; TEMP 97.7
[2023-10-01] MEDS: Citalopram 20 MG TAB PO SCH (08:29)
[2023-10-01] MEDS: Atorvastatin Calcium 20 MG TAB PO SCH (08:29)
[2023-10-01] MEDS: Apixaban 5 MG TAB PO SCH (08:29)
[2023-10-01] MEDS: Furosemide 40 MG TAB PO SCH (08:29)
[2023-10-01] MEDS: Spironolactone 25 MG TAB PO SCH (08:30)
== END 2023-10-01 12:03 | DRG 872 ==
LOC: ERS 03:37 → ERHOLD 08:38 → 2NO 20:23 → MSONC 09-22 19:37
PROVIDERS: ADMIT Internal Medicine; ATTEND Emergency Medicine
DX: A40.0 Sepsis due to streptococcus, group A (principal); Z68.41 Body mass index [BMI] 40.0-44.9, adult; I50.32 Chronic diastolic (congestive) heart failure; K86.2 Cyst of pancreas; N30.00 Acute cystitis without hematuria; E11.9 Type 2 diabetes mellitus without complications; I11.0 Hypertensive heart disease with heart failure; I50.9 Heart failure, unspecified; E78.5 Hyperlipidemia, unspecified; I48.91 Unspecified atrial fibrillation; E66.01 Morbid (severe) obesity due to excess calories; H40.9 Unspecified glaucoma; K21.9 Gastro-esophageal reflux disease without esophagitis; F32.A Depression, unspecified; K80.20 Calculus of gallbladder without cholecystitis without obstruction; N26.1 Atrophy of kidney (terminal); K38.8 Other specified diseases of appendix; N20.0 Calculus of kidney; Z79.899 Other long term (current) drug therapy; Z88.2 Allergy status to sulfonamides; Z79.01 Long term (current) use of anticoagulants; Z90.710 Acquired absence of both cervix and uterus; Z90.49 Acquired absence of other specified parts of digestive tract; Z98.890 Other specified postprocedural states; Z98.51 Tubal ligation status
CPT/HCPCS: 36415; 36416; 71045; 72170; 74176; 74178; 76705; 80048; 80053; 80076; 80202; 81001; 83735; 83880; 84100; 84443; 84484; 85025; 86140; 87040; 87077; 87186; 93306; 96365; 96367; 96368; J0696; J1815; J3370; J3370-JW; J3475; J3490; J7050; Q9967

== ENCOUNTER 2024-01-17 12:37 | Inpatient (IN) | payer MEDICARE ==
[2024-01-17] MEDS ORDERED: Nitroglycerin 2% Ointment 1 INCH/1 GM Packet ONE (14:24)
[2024-01-17] MEDS ORDERED: Furosemide 40 MG (4 mL) VIAL ONE (14:24)
[2024-01-17 14:26] LABS: Bacteria/HPF None Seen HPF (None Seen); Bilirubin Negative (Negative); Blood, Urine 1+ (Negative); CAUTI Indications for Culture Alt mental st,lethar; Clarity Clear (Clear); Glucose, Urine (Dipstick) Normal (Negative); Ketone, Urine Negative (Negative); Leukocyte Negative Leu/uL (Negative); Nitrite Negative (Negative); Protein, Urine (Dipstick) Negative (Neg-Trace); RBC/HPF 0-3 HPF (0-3); Specific Gravity, Urine 1.007 (1.002-1.036); Squamous Epithelial 0-3 HPF (0-3); Urobilinogen Normal mg/dL (Less than 2); WBC/HPF None Seen HPF (0-3)
[2024-01-17 14:28] LABS: Urine Culture Reflex No No
[2024-01-17 14:53] LABS: #Basophils 0.03 10x3/uL (0.0-0.2); %Basophils 0.6 % (0.0-1.0); %Eosinophils 3.5 % (0.0-10.0); %Lymphocytes 18.2 % (21.0-51.0); %Neutrophils 67.5 % (42.0-75.0); Hematocrit 40.4 % (36.0-47.0); Hemoglobin 13.1 g/dL (12.0-16.0); Mean Corpuscular HGB CONC 32.4 g/dL (32.0-36.0); Mean Corpuscular Hemoglobin 29.6 pg (27.0-31.0); Mean Corpuscular Volume 91.2 fL (78.0-98.0); Mean Platelet Volume 11.6 fL (7.4-10.4); Platelet Count 131 10x3/uL (130-400); Red Blood Cell (RBC) Count 4.43 mill/uL (4.20-5.40)
[2024-01-17 15:12] LABS: Globulin 3.9 g/dL (2.4-3.5)
[2024-01-17 15:14] LABS: Troponin I 0.014 ng/mL (< 0.028)
[2024-01-17 15:16] LABS: ALT (SGPT) 11 U/L (8-55); AST (SGOT) 15 U/L (5-34); Albumin 3.7 g/dL (3.4-4.8); Alkaline Phosphatase 162 U/L (40-110); Anion Gap 16 mmol/L (10-20); BUN (Urea Nitrogen) 13 mg/dL (9.8-20.1); Bilirubin, Total 1.7 mg/dL (0.2-1.2); Calc. Creatinine Clearance 0 mL/min (70-130); Calcium 9.6 mg/dL (7.8-10.44); Carbon Dioxide 26 mmol/L (23-31); Chloride 107 mmol/L (98-107); Estimated GFR 56; Glucose 104 mg/dL (83-110); Potassium 3.5 mmol/L (3.5-5.1); Protein, Total 7.6 g/dL (5.8-8.1); Sodium 145 mmol/L (136-145)
[2024-01-17] MEDS ORDERED: Acetaminophen 325 MG TAB PO PRN (17:44)
[2024-01-17 18:26] VITALS: BMI 53.2
[2024-01-17] MEDS: cefTRIAXone\\ROCEPHIN 2 GM in Sodium Chloride 0.9% 100 ML IVPB SCH (18:42)
[2024-01-17] MEDS: Potassium Chloride 20 MEQ TAB PO SCH (19:02)
[2024-01-17] MEDS: Atorvastatin Calcium 20 MG TAB PO SCH (21:27)
[2024-01-17] MEDS: Apixaban 5 MG TAB PO SCH (21:27)
[2024-01-17] MEDS: Latanoprost 0.005% Ophth Soln 2.5 ml Bottle EA EYE SCH (21:28)
[2024-01-17] MEDS: Montelukast Sodium 10 mg Tablet PO SCH (21:28)
[2024-01-17 22:36] LABS: Creatinine, Urine 14.87 mg/dL (47-110); Protein, Urine Random Quant Less than 10 mg/dL (1-14)
[2024-01-18] MEDS: Furosemide 100 MG (10 mL) VIAL SLOW IVP SCH (07:45)
[2024-01-18 08:20] LABS: Anion Gap 13 mmol/L (10-20); BUN (Urea Nitrogen) 13 mg/dL (9.8-20.1); Calc. Creatinine Clearance 133 mL/min (70-130); Calcium 8.8 mg/dL (7.8-10.44); Carbon Dioxide 23 mmol/L (23-31); Chloride 109 mmol/L (98-107); Estimated GFR 68; Glucose 99 mg/dL (83-110); Magnesium 1.9 mg/dL (1.6-2.6); Potassium 3.6 mmol/L (3.5-5.1); Sodium 141 mmol/L (136-145)
[2024-01-18] MEDS: Spironolactone 25 MG TAB PO SCH (08:56)
[2024-01-18] MEDS: Potassium Chloride 20 MEQ TAB PO SCH (08:56)
[2024-01-18] MEDS: Citalopram 20 MG TAB PO SCH (08:56)
[2024-01-18] MEDS: Pantoprazole DR 40 MG TAB PO SCH (08:56)
[2024-01-18 09:43] LABS: #Basophils 0.04 10x3/uL (0.0-0.2); %Basophils 1.2 % (0.0-1.0); %Eosinophils 6.4 % (0.0-10.0); %Lymphocytes 24.1 % (21.0-51.0); %Monocytes 15.4 % (0.0-10.0); %Neutrophils 52.9 % (42.0-75.0); Hematocrit 35.4 % (36.0-47.0); Hemoglobin 11.2 g/dL (12.0-16.0); Mean Corpuscular HGB CONC 31.6 g/dL (32.0-36.0); Mean Corpuscular Hemoglobin 29.9 pg (27.0-31.0); Mean Corpuscular Volume 94.7 fL (78.0-98.0); Mean Platelet Volume 12.1 fL (7.4-10.4); Platelet Count 120 10x3/uL (130-400); RBC Distribution Width 17.1 % (11.5-14.5); Red Blood Cell (RBC) Count 3.74 mill/uL (4.20-5.40)
[2024-01-18 10:53] LABS: Burr Cells SLIGHT = 2-5 cells HPF (0-1); Platelet Adequacy Comment Platelets Decreased; Poikilocytosis SLIGHT = 6-15 cells HPF (0-5); Polychromasia SLIGHT = 2-3 cells HPF (0-2)
[2024-01-19 05:25] LABS: Globulin 2.7 g/dL (2.4-3.5)
[2024-01-19 05:26] LABS: #Basophils Less than 0.03 10x3/uL (0.0-0.2); %Basophils 0.6 % (0.0-1.0); %Eosinophils 4.6 % (0.0-10.0); %Lymphocytes 28.7 % (21.0-51.0); %Monocytes 13.8 % (0.0-10.0); Hematocrit 31.6 % (36.0-47.0); Hemoglobin 10.3 g/dL (12.0-16.0); Mean Corpuscular HGB CONC 32.6 g/dL (32.0-36.0); Mean Corpuscular Hemoglobin 30.1 pg (27.0-31.0); Mean Corpuscular Volume 92.4 fL (78.0-98.0); Mean Platelet Volume 11.4 fL (7.4-10.4); Platelet Count 124 10x3/uL (130-400); RBC Distribution Width 16.8 % (11.5-14.5); Red Blood Cell (RBC) Count 3.42 mill/uL (4.20-5.40)
[2024-01-19 05:34] LABS: ALT (SGPT) 6 U/L (8-55); AST (SGOT) 11 U/L (5-34); Albumin 2.7 g/dL (3.4-4.8); Alkaline Phosphatase 117 U/L (40-110); Anion Gap 10 mmol/L (10-20); BUN (Urea Nitrogen) 13 mg/dL (9.8-20.1); Bilirubin, Total 0.9 mg/dL (0.2-1.2); Calc. Creatinine Clearance 126 mL/min (70-130); Calcium 8.7 mg/dL (7.8-10.44); Carbon Dioxide 27 mmol/L (23-31); Chloride 107 mmol/L (98-107); Estimated GFR 64; Glucose 117 mg/dL (83-110); Magnesium 1.9 mg/dL (1.6-2.6); Potassium 3.4 mmol/L (3.5-5.1); Protein, Total 5.4 g/dL (5.8-8.1); Sodium 141 mmol/L (136-145)
[2024-01-20 05:22] LABS: Globulin 2.9 g/dL (2.4-3.5)
[2024-01-20 05:26] LABS: ALT (SGPT) 6 U/L (8-55); AST (SGOT) 9 U/L (5-34); Albumin 2.7 g/dL (3.4-4.8); Alkaline Phosphatase 120 U/L (40-110); Anion Gap 14 mmol/L (10-20); BUN (Urea Nitrogen) 14 mg/dL (9.8-20.1); Bilirubin, Total 0.9 mg/dL (0.2-1.2); Calc. Creatinine Clearance 112 mL/min (70-130); Calcium 8.8 mg/dL (7.8-10.44); Carbon Dioxide 28 mmol/L (23-31); Chloride 105 mmol/L (98-107); Estimated GFR 57; Glucose 122 mg/dL (83-110); Magnesium 1.9 mg/dL (1.6-2.6); Potassium 3.5 mmol/L (3.5-5.1); Protein, Total 5.6 g/dL (5.8-8.1); Sodium 143 mmol/L (136-145)
[2024-01-20 05:40] LABS: #Basophils Less than 0.03 10x3/uL (0.0-0.2); %Basophils 0.5 % (0.0-1.0); %Eosinophils 5.7 % (0.0-10.0); %Lymphocytes 28.8 % (21.0-51.0); %Monocytes 15.8 % (0.0-10.0); %Neutrophils 48.9 % (42.0-75.0); Hematocrit 33.3 % (36.0-47.0); Mean Corpuscular Hemoglobin 30.4 pg (27.0-31.0); Mean Platelet Volume 11.6 fL (7.4-10.4); Platelet Count 124 10x3/uL (130-400); RBC Distribution Width 16.6 % (11.5-14.5); Red Blood Cell (RBC) Count 3.62 mill/uL (4.20-5.40)
[2024-01-20] MEDS: Spironolactone 25 MG TAB PO SCH (08:50)
[2024-01-20] MEDS ORDERED: Empagliflozin 10 MG TAB PO SCH (09:00)
[2024-01-21 04:33] LABS: Anion Gap 12 mmol/L (10-20); BUN (Urea Nitrogen) 17 mg/dL (9.8-20.1); Calc. Creatinine Clearance 97 mL/min (70-130); Calcium 8.7 mg/dL (7.8-10.44); Carbon Dioxide 29 mmol/L (23-31); Chloride 105 mmol/L (98-107); Estimated GFR 51; Glucose 135 mg/dL (83-110); Potassium 3.4 mmol/L (3.5-5.1); Sodium 143 mmol/L (136-145)
[2024-01-21 11:19] VITALS: BP 98/49; TEMP 98
[2024-01-21] MEDS: Furosemide 40 MG (4 mL) VIAL SLOW IVP SCH (14:51)
== END 2024-01-21 18:25 | disposition home or self-care (01) | DRG 291 ==
LOC: ERS 12:37 → ERHOLD 16:24 → 2NO 18:16
PROVIDERS: ADMIT Family Medicine; ATTEND Internal Medicine
DX: I13.0 Hypertensive heart and chronic kidney disease with heart failure and stage 1 through stage 4 chronic kidney disease, or unspecified chronic kidney disease (principal); I50.33 Acute on chronic diastolic (congestive) heart failure; N17.9 Acute kidney failure, unspecified; Z68.42 Body mass index [BMI] 45.0-49.9, adult; I48.21 Permanent atrial fibrillation; I50.32 Chronic diastolic (congestive) heart failure; E87.70 Fluid overload, unspecified; N18.30 Chronic kidney disease, stage 3 unspecified; E78.5 Hyperlipidemia, unspecified; E11.22 Type 2 diabetes mellitus with diabetic chronic kidney disease; N18.2 Chronic kidney disease, stage 2 (mild); K21.9 Gastro-esophageal reflux disease without esophagitis; E66.01 Morbid (severe) obesity due to excess calories; E88.09 Other disorders of plasma-protein metabolism, not elsewhere classified; F39 Unspecified mood [affective] disorder; E87.6 Hypokalemia; N20.0 Calculus of kidney; Z66 Do not resuscitate; I87.8 Other specified disorders of veins; Z79.01 Long term (current) use of anticoagulants; Z79.899 Other long term (current) drug therapy; Z90.710 Acquired absence of both cervix and uterus; Z88.2 Allergy status to sulfonamides; Z98.890 Other specified postprocedural states; Z98.51 Tubal ligation status
CPT/HCPCS: 36415; 36416; 71045; 74176; 76770; 78708; 80048; 80053; 81001; 82570; 83690; 83735; 83880; 84156; 84484; 85025; 86141; 87040; 93005; 97139; A4641; J0696; J1940; J3490

== ENCOUNTER 2024-02-11 09:09 | Outpatient (CLI) | payer MEDICARE ==
[2024-02-11 10:27] LABS: Bilirubin Neg (Negative); Blood, Urine 10 (Negative); Clarity Clear (Clear); Glucose, Urine (Dipstick) Normal (Negative); Ketone, Urine Negative (Negative); Leukocyte Negative (Negative); Nitrite Negative (Negative); Protein, Urine (Dipstick) 15 mg/dl (Neg-Trace)
[2024-02-11 10:30] LABS: Hematocrit 36.6 % (34.9-44.5); Hemoglobin 12.1 g/dL (12.0-15.5); Mean Corpuscular HGB CONC 33.1 g/dL (32.0-36.0); Mean Corpuscular Hemoglobin 30.9 pg (27.0-33.0); Mean Corpuscular Volume 93.4 fL (81.6-98.3); Mean Platelet Volume 12.1 fL (7.4-10.4); Platelet Count 134 10x3/uL (150-450); RBC Distribution Width 16.4 % (11.5-14.5); Red Blood Cell (RBC) Count 3.92 10x6/uL (3.90-5.03); White Blood Cell (WBC) Count 3.8 10x3/uL (3.5-10.5)
[2024-02-11 10:57] LABS: INR-International Normal Ratio 1.1; PTT 27.1 sec (22.0-33.0); Prothrombin Time 11.7 sec (9.5-12.1)
[2024-02-11 11:04] LABS: RBC/HPF 0-3 HPF (0-3); Squamous Epithelial 0-3 HPF (0-3); WBC/HPF 0-3 HPF (0-3)
[2024-02-11 11:06] LABS: Bacteria/HPF None Seen HPF (None Seen)
[2024-02-11 11:25] LABS: Anion Gap 17 mmol/L (10-20); BUN (Urea Nitrogen) 25 mg/dL (9.8-20.1); Calc. Creatinine Clearance 0 mL/min (70-130); Calcium 9.7 mg/dL (7.8-10.44); Carbon Dioxide 23 mmol/L (23-31); Chloride 106 mmol/L (98-107); Estimated GFR 52; Glucose 175 mg/dL (83-110); Potassium 4.2 mmol/L (3.5-5.1); Sodium 142 mmol/L (136-145)
== END 2024-02-11 09:10 | disposition home or self-care (01) ==
LOC: LABBT 09:09
PROVIDERS: ATTEND Urology
DX: Z01.818 Encounter for other preprocedural examination (principal); N20.0 Calculus of kidney
CPT/HCPCS: 80048; 81001; 85027; 85610; 85730; 87086; 93005; 93010

== ENCOUNTER 2024-02-25 06:18 | Day surgery (SDC) | payer MEDICARE ==
[2024-02-11 10:01] VITALS: BMI 47.9
[2024-02-25] MEDS ORDERED: Iopamidol 15 ML ONE (06:41)
[2024-02-25] MEDS ORDERED: PROPOFOL 40 ML ONE (06:56)
[2024-02-25] MEDS ORDERED: Lidocaine 1% PF 5 ML VIAL ONE (06:57)
[2024-02-25] MEDS ORDERED: LevoFLOXacin D5W 500 mg (100 mL) BAG ONE (06:58)
[2024-02-25] MEDS ORDERED: Dexamethasone 4 mg/ml Vial ONE (06:59)
[2024-02-25] MEDS ORDERED: Dexmedetomidine 200 MCG/2 ML VIAL ONE (06:59)
[2024-02-25] MEDS ORDERED: Ondansetron PF 4 MG/2 ML Vial ONE (06:59)
[2024-02-25] MEDS ORDERED: Lidocaine 1% MPF 2 ML VIAL ONE (06:59)
[2024-02-25] MEDS ORDERED: fentaNYL 50 mcg/mL 1 mL Vial ONE (07:18)
[2024-02-25] MEDS ORDERED: SUGAMMADEX SODIUM 200 MG/2 ML VIAL ONE (07:26)
[2024-02-25] MEDS ORDERED: Glycopyrrolate 0.2 MG/ML 5 ML SYRINGE ONE (07:58)
[2024-02-25] MEDS ORDERED: Rocuronium Bromide 10 MG/ML (10ML VIAL) ONE (07:58)
[2024-02-25] MEDS ORDERED: ePHEDrine Sulfate 50 MG/10 ML VIAL ONE (08:07)
[2024-02-25] MEDS ORDERED: Oxybutynin 5 MG TAB ONE (09:30)
[2024-02-25] MEDS ORDERED: Phenazopyridine HCl 100 MG TAB ONE (09:30)
== END 2024-02-25 11:10 | disposition home or self-care (01) ==
LOC: SDC 06:18
PROVIDERS: ATTEND Urology
PROC: 0TF78ZZ Fragmentation in Left Ureter, Via Natural or Artificial Opening Endoscopic (ICD-10-PCS; principal; 2024-02-25)
PROC: 0T778DZ Dilation of Left Ureter with Intraluminal Device, Via Natural or Artificial Opening Endoscopic (ICD-10-PCS; 2024-02-25)
DX: N20.0 Calculus of kidney (principal); I50.9 Heart failure, unspecified; I11.0 Hypertensive heart disease with heart failure; E78.5 Hyperlipidemia, unspecified; E11.9 Type 2 diabetes mellitus without complications; I48.91 Unspecified atrial fibrillation; H40.9 Unspecified glaucoma; K21.9 Gastro-esophageal reflux disease without esophagitis; N28.9 Disorder of kidney and ureter, unspecified; G43.909 Migraine, unspecified, not intractable, without status migrainosus; F41.9 Anxiety disorder, unspecified; F32.A Depression, unspecified; Z90.710 Acquired absence of both cervix and uterus; Z88.2 Allergy status to sulfonamides; Z90.49 Acquired absence of other specified parts of digestive tract; Z79.899 Other long term (current) drug therapy
CPT/HCPCS: 52356; 74420; 82365; C1713; C1747; C1769; C2617; J1100; J1956; J2405; J2704; J3010; Q9967; 88300

== ENCOUNTER 2024-08-09 18:30 | Inpatient (IN) | payer MEDICARE ==
[2024-08-09] MEDS ORDERED: Nitroglycerin 2% Ointment 1 INCH/1 GM Packet ONE (20:02)
[2024-08-09] MEDS ORDERED: Furosemide 40 MG (4 mL) VIAL ONE (20:02)
[2024-08-09] MEDS ORDERED: Ipratropium/Albuterol 3 ML NEB ONE (20:02)
[2024-08-10] MEDS: Doxycycline 100 MG CAP ONE (23:09)
[2024-08-10] MEDS: Ipratropium/Albuterol 3 ML NEB ONE (23:09)
[2024-08-10] MEDS: Famotidine 20 MG TAB ONE (23:09)
[2024-08-11] MEDS ORDERED: Ipratropium/Albuterol 3 ML NEB NEB PRN ×2 (00:51→01:03)
[2024-08-11] MEDS ORDERED: Acetaminophen 325 MG TAB PO PRN (01:00)
[2024-08-11] MEDS ORDERED: Acetaminophen 650 MG Suppository PR PRN (01:00)
[2024-08-11] MEDS ORDERED: Ondansetron PF 4 MG/2 ML Vial SLOW IVP PRN (01:00)
[2024-08-11] MEDS ORDERED: Ondansetron ODT 4 MG TAB PO PRN (01:00)
[2024-08-11] MEDS: methylPREDNISolone Sod Succ 40 MG VIAL IVP SCH (01:22)
[2024-08-11] MEDS: Furosemide 40 MG (4 mL) VIAL SLOW IVP SCH (05:03)
[2024-08-11 05:10] VITALS: BMI 48.4
[2024-08-11] MEDS ORDERED: methylPREDNISolone Sod Succ 40 MG VIAL IVP SCH (06:00)
[2024-08-11] MEDS ORDERED: Famotidine 20 MG TAB PO SCH (09:00)
[2024-08-11] MEDS ORDERED: Famotidine/PF 20 mg/2ml Vial SLOW IVP SCH (09:00)
[2024-08-11 09:31] LABS: Anion Gap 13 mmol/L (10-20); BUN (Urea Nitrogen) 19 mg/dL (9.8-20.1); Calc. Creatinine Clearance 102 mL/min (70-130); Calcium 8.7 mg/dL (7.8-10.44); Carbon Dioxide 25 mmol/L (23-31); Chloride 105 mmol/L (98-107); Estimated GFR 58; Glucose 288 mg/dL (83-110); Potassium 3.4 mmol/L (3.5-5.1); Sodium 140 mmol/L (136-145)
[2024-08-11 09:42] LABS: Hematocrit 32.1 % (36.0-47.0); Hemoglobin 10.3 g/dL (12.0-16.0); Mean Corpuscular HGB CONC 32.1 g/dL (32.0-36.0); Mean Corpuscular Hemoglobin 30.7 pg (27.0-31.0); Mean Corpuscular Volume 95.8 fL (78.0-98.0); Mean Platelet Volume 12.3 fL (7.4-10.4); Platelet Count 100 10x3/uL (130-400); RBC Distribution Width 15.2 % (11.5-14.5); Red Blood Cell (RBC) Count 3.35 mill/uL (4.20-5.40)
[2024-08-11 10:14] LABS: Burr Cells SLIGHT = 2-5 cells HPF (0-1); Macrocytosis SLIGHT = 6-15 cells HPF (0-5); Ovalocytes SLIGHT = 2-5 cells HPF (0-1); Platelet Adequacy Comment Platelets Decreased; Polychromasia SLIGHT = 2-3 cells HPF (0-2)
[2024-08-11 10:17] LABS: #Basophils Less than 0.03 10x3/uL (0.0-0.2); #Eosinophils Less than 0.03 10x3/uL (0.0-0.7); %Basophils 0.2 % (0.0-1.0); %Lymphocytes 14.5 % (21.0-51.0); %Monocytes 8.6 % (0.0-10.0); %Neutrophils 76.5 % (42.0-75.0)
[2024-08-11] MEDS: Potassium Chloride 20 MEQ TAB ONE (12:21)
[2024-08-11] MEDS: Pantoprazole DR 40 MG TAB PO SCH (12:22)
[2024-08-11] MEDS: Empagliflozin 10 MG TAB PO SCH (12:22)
[2024-08-11] MEDS: Doxycycline 100 MG CAP PO SCH (12:23)
[2024-08-11] MEDS: cefTRIAXone\\ROCEPHIN 1 GM in Sodium Chloride 0.9% 100 ML IVPB SCH (12:23)
[2024-08-11] MEDS: Atorvastatin Calcium 20 MG TAB PO SCH (12:23)
[2024-08-11] MEDS: Citalopram 20 MG TAB PO SCH (12:23)
[2024-08-11] MEDS: Apixaban 5 MG TAB PO SCH (12:24)
[2024-08-11] MEDS ORDERED: Amlodipine 10 MG TAB PO SCH (15:37)
[2024-08-11] MEDS: Metoprolol Tartrate 25 MG TAB PO SCH (17:35)
[2024-08-11] MEDS ORDERED: Metoprolol Tartrate 25 MG TAB PO SCH (21:00)
[2024-08-11] MEDS: Latanoprost 0.005% Ophth Soln 2.5 ml Bottle EA EYE SCH (22:13)
[2024-08-12 06:43] LABS: Anion Gap 15 mmol/L (10-20); BUN (Urea Nitrogen) 21 mg/dL (9.8-20.1); Calc. Creatinine Clearance 106 mL/min (70-130); Calcium 8.8 mg/dL (7.8-10.44); Carbon Dioxide 27 mmol/L (23-31); Chloride 105 mmol/L (98-107); Estimated GFR 61; Glucose 186 mg/dL (83-110); Potassium 3.7 mmol/L (3.5-5.1); Sodium 143 mmol/L (136-145)
[2024-08-12 06:46] LABS: Hemoglobin 11.2 g/dL (12.0-16.0); Mean Corpuscular HGB CONC 32.9 g/dL (32.0-36.0); Mean Corpuscular Hemoglobin 31.5 pg (27.0-31.0); Mean Corpuscular Volume 95.5 fL (78.0-98.0); Mean Platelet Volume 12.1 fL (7.4-10.4); Platelet Count 139 10x3/uL (130-400); RBC Distribution Width 15.1 % (11.5-14.5); Red Blood Cell (RBC) Count 3.56 mill/uL (4.20-5.40)
[2024-08-12] MEDS: Ipratropium/Albuterol 3 ML NEB NEB SCH (07:10)
[2024-08-12 07:13] LABS: Anisocytosis SLIGHT = 6-15 cells HPF (0-5); Lymphocytes 8 % (21-51); Macrocytosis SLIGHT = 6-15 cells HPF (0-5); Monocytes 1 % (0-10); Neutrophil 91 % (42-75); Ovalocytes SLIGHT = 2-5 cells HPF (0-1); Platelet Adequacy Comment Platelets Normal; Polychromasia MODERATE = 3-4 cells HPF (0-2)
[2024-08-12] MEDS: Ferrous Sulfate 325 MG TAB PO SCH (10:01)
[2024-08-12] MEDS: Losartan 25 MG TAB PO SCH (10:02)
[2024-08-12] MEDS: Metoprolol Tartrate 25 MG TAB PO SCH (10:02)
[2024-08-12] MEDS: Potassium Chloride 20 MEQ TAB PO SCH (10:02)
[2024-08-12] MEDS: Spironolactone 25 MG TAB PO SCH (10:02)
[2024-08-12] MEDS ORDERED: Dextrose 50% Abboject 50 ML SYRINGE SLOW IVP PRN (22:13)
[2024-08-12] MEDS ORDERED: Glucagon 1 MG/ML KIT IM PRN (22:13)
[2024-08-12] MEDS ORDERED: Dextrose 5% in Water 1,000 ML IV PRN (22:13)
[2024-08-13 06:14] LABS: #Basophils Less than 0.03 10x3/uL (0.0-0.2); #Eosinophils Less than 0.03 10x3/uL (0.0-0.7); %Basophils 0.1 % (0.0-1.0); %Lymphocytes 10.3 % (21.0-51.0); %Monocytes 6.9 % (0.0-10.0); %Neutrophils 82.4 % (42.0-75.0); Hemoglobin 10.9 g/dL (12.0-16.0); Mean Corpuscular HGB CONC 32.1 g/dL (32.0-36.0); Mean Corpuscular Hemoglobin 30.6 pg (27.0-31.0); Mean Corpuscular Volume 95.5 fL (78.0-98.0); Mean Platelet Volume 12.3 fL (7.4-10.4); Platelet Count 137 10x3/uL (130-400); Red Blood Cell (RBC) Count 3.56 mill/uL (4.20-5.40)
[2024-08-13 06:53] LABS: Anion Gap 12 mmol/L (10-20); BUN (Urea Nitrogen) 27 mg/dL (9.8-20.1); Calc. Creatinine Clearance 104 mL/min (70-130); Calcium 8.8 mg/dL (7.8-10.44); Carbon Dioxide 28 mmol/L (23-31); Chloride 105 mmol/L (98-107); Estimated GFR 59; Glucose 210 mg/dL (83-110); Potassium 3.6 mmol/L (3.5-5.1); Sodium 141 mmol/L (136-145)
[2024-08-13] MEDS: predniSONE 5 MG TAB PO SCH (09:23)
[2024-08-13] MEDS: Cefdinir 300 MG CAP PO SCH (09:23)
[2024-08-13] MEDS: Carvedilol 6.25 MG TAB PO SCH ×2 (09:23→16:51)
[2024-08-13] MEDS: Insulin Lispro 100 UNIT/ML 10 ML VIAL SC PRN (12:08)
[2024-08-13] MEDS: Losartan 25 MG TAB PO SCH (20:18)
[2024-08-14 04:48] LABS: #Basophils Less than 0.03 10x3/uL (0.0-0.2); %Basophils 0.3 % (0.0-1.0); %Lymphocytes 24.7 % (21.0-51.0); %Monocytes 11.1 % (0.0-10.0); %Neutrophils 62.6 % (42.0-75.0); Hematocrit 34.8 % (36.0-47.0); Hemoglobin 11.3 g/dL (12.0-16.0); Mean Corpuscular HGB CONC 32.5 g/dL (32.0-36.0); Mean Corpuscular Hemoglobin 30.9 pg (27.0-31.0); Mean Corpuscular Volume 95.1 fL (78.0-98.0); Mean Platelet Volume 12.1 fL (7.4-10.4); Platelet Count 139 10x3/uL (130-400); RBC Distribution Width 14.9 % (11.5-14.5); Red Blood Cell (RBC) Count 3.66 mill/uL (4.20-5.40)
[2024-08-14 05:05] LABS: Anion Gap 10 mmol/L (10-20); BUN (Urea Nitrogen) 30 mg/dL (9.8-20.1); Calc. Creatinine Clearance 99 mL/min (70-130); Calcium 8.6 mg/dL (7.8-10.44); Carbon Dioxide 29 mmol/L (23-31); Chloride 104 mmol/L (98-107); Estimated GFR 56; Glucose 131 mg/dL (83-110); Potassium 3.6 mmol/L (3.5-5.1); Sodium 139 mmol/L (136-145)
[2024-08-14] MEDS: Carvedilol 3.125 MG TAB PO SCH (10:03)
[2024-08-14] MEDS: Furosemide 40 MG (4 mL) VIAL SLOW IVP SCH (10:03)
[2024-08-14 12:57] LABS: ALT (SGPT) 18 U/L (8-55); AST (SGOT) 24 U/L (5-34); Albumin 3.3 g/dL (3.4-4.8); Alkaline Phosphatase 165 U/L (40-110); Anion Gap 14 mmol/L (10-20); BUN (Urea Nitrogen) 18 mg/dL (9.8-20.1); Bilirubin, Total 1.6 mg/dL (0.2-1.2); Calc. Creatinine Clearance 103 mL/min (70-130); Calcium 8.7 mg/dL (7.8-10.44); Carbon Dioxide 24 mmol/L (23-31); Chloride 108 mmol/L (98-107); Estimated GFR 58; Globulin 3.4 g/dL (2.4-3.5); Glucose 114 mg/dL (83-110); Potassium 3.4 mmol/L (3.5-5.1); Protein, Total 6.7 g/dL (5.8-8.1); Sodium 143 mmol/L (136-145)
[2024-08-14 12:58] LABS: Troponin I 0.016 ng/mL (< 0.028)
[2024-08-14 13:00] LABS: Hematocrit 34.5 % (36.0-47.0); Hemoglobin 11.3 g/dL (12.0-16.0); Mean Corpuscular Hemoglobin 31.4 pg (27.0-31.0); Mean Corpuscular Volume 95.8 fL (78.0-98.0); White Blood Cell (WBC) Count 5.89 10x3/uL (4.8-10.8)
[2024-08-14 13:01] LABS: #Basophils 0.02 10x3/uL (0.0-0.2); #Eosinophils 0.01 10x3/uL (0.0-0.7); #Monocytes 0.83 10x3/uL (0.11-0.59); #Neutrophils 4.38 10x3/uL (1.40-6.50); %Basophils 0.3 % (0.0-1.0); %Eosinophils 0.2 % (0.0-10.0); %Lymphocytes 10.5 % (21.0-51.0); %Monocytes 14.1 % (0.0-10.0); %Neutrophils 74.4 % (42.0-75.0); Mean Corpuscular HGB CONC 32.8 g/dL (32.0-36.0); Mean Platelet Volume 11.5 fL (7.4-10.4); Platelet Count 114 10x3/uL (130-400); RBC Distribution Width 15.7 % (11.5-14.5)
[2024-08-14 13:03] LABS: Clarity Hazy (Clear); Glucose, Urine (Dipstick) Negative (Negative); Leukocyte Negative Leu/uL (Negative); Nitrite Negative (Negative); Protein, Urine (Dipstick) 50 mg/dL (Neg-Trace); Specific Gravity, Urine 1.011 (1.002-1.036)
[2024-08-14 13:04] LABS: Bilirubin Negative (Negative); Blood, Urine 1+ (Negative); Ketone, Urine 20 mg/dL (Negative); RBC/HPF 0-3 HPF (0-3); Renal Epithelial None Seen HPF (None Seen); Squamous Epithelial 0-3 HPF (0-3); Transitional Epithelial None Seen HPF (None Seen)
[2024-08-14 17:34] VITALS: BP 153/65; TEMP 97.8
== END 2024-08-14 19:55 | disposition home or self-care (01) | DRG 291 ==
LOC: ERS 18:30 → PCU 08-10 00:24 → UNDOADMIN 08-10 00:24 → ERHOLD 08-10 01:00 → 2NO 08-10 01:10
PROVIDERS: ATTEND Family Medicine
DX: I11.0 Hypertensive heart disease with heart failure (principal); G93.41 Metabolic encephalopathy; I50.33 Acute on chronic diastolic (congestive) heart failure; J96.01 Acute respiratory failure with hypoxia; J18.9 Pneumonia, unspecified organism; Z68.42 Body mass index [BMI] 45.0-49.9, adult; I48.0 Paroxysmal atrial fibrillation; E78.5 Hyperlipidemia, unspecified; E66.01 Morbid (severe) obesity due to excess calories; E11.9 Type 2 diabetes mellitus without complications; F32.9 Major depressive disorder, single episode, unspecified; Z88.2 Allergy status to sulfonamides; Z91.048 Other nonmedicinal substance allergy status; Z90.49 Acquired absence of other specified parts of digestive tract; Z79.4 Long term (current) use of insulin; Z79.01 Long term (current) use of anticoagulants; Z79.899 Other long term (current) drug therapy; R00.1 Bradycardia, unspecified
CPT/HCPCS: 36415; 36416; 71045; 80048; 81001; 83880; 84484; 85025; 87426; 94640; 96374; J0696; J1815; J1940; J2919; J7512; J7620